=== PATIENT | male | born 1960 | race Caucasian/White ===

== ENCOUNTER 2018-04-26 14:38 | Inpatient (IN) | payer MEDICARE, MEDICAID ==
[2018-04-26] MEDS ORDERED: Albuterol/Ipratropium Neb 3 ML AERS HHN ONE ×3 (15:16→19:45)
[2018-04-26] MEDS ORDERED: Sodium Chloride 0.9% 1,000 ML IV ONE (15:16)
[2018-04-26] MEDS ORDERED: Levofloxacin 500mg/100mL 500 MG/100 ML BAG IV ONE ×2 (15:16→16:05)
--- NOTE | 2018-04-26 15:21 | ED Physician Chart ---
ED Chief Complaint/HPI - Patient Information Date Seen:: 04/26/18 Time Seen:: 15:00 Chief Complaint:: Fever History of Present Illness:: onset x 3 days of fever, cough, congestion, pleuritic chest pain, and dyspnea; pt denies trauma, H/As, S/T, neck pain, Abd. Pain, A/N/V/D/C, chills, or urinary s/s Allergies:: Allergies Allergy/AdvReac Type Severity Reaction Status Date / Time Sulfa (Sulfonamide Allergy Verified 04/26/18 15:05 Antibiotics) Vitals:: Vital Signs - 8 hr 04/26/18 15:05 Temp 99.0 F HR 103 RR 21 BP 152/81 O2 Sat % 95 Historian:: Patient Review:: Nurse's Note Reviewed, Old Chart Reviewed ED Review of Systems - Review of Systems General/Constitutional: Fever, No chills, No weight loss, No weakness, No diaphoresis, No edema, No loss of appetite Skin: No skin lesions, No rash, No bruising Head: No headache, No light-headedness Eyes: No loss of vision, No pain, No diplopia ENT: No earache, Nasal drainage, No sore throat, No tinnitus Neck: No neck pain, No swelling, No thyromegaly, No stiffness, No mass noted Cardio Vascular: Chest pain, No palpitations, No PND, No orthopnea, No edema Pulmonary: SOB, Cough, No sputum, No wheezing GI: No nausea, No vomiting, No diarrhea, No pain, No melena, No hematochezia, No constipation, No hematemesis G/U: No dysuria, No frequency, No hematuria, No nacturia Musculoskeletal: No bone or joint pain, No back pain, No muscle pain Endocrine: No polyuria, No polydipsia Psychiatric: No prior psych history, No depression, No anxiety, No suicidal ideation, No homicidal ideation, No auditory hallucination, No visual hallucination Hematopoietic: No bruising, No lymphadenopathy Allergic/Immuno: No urticaria, No angioedema Neurological: No syncope, No focal symptoms, No weakness, No paresthesia, No headache, No seizure, No dizziness, No confusion, No vertigo ED Past Medical History - Past Medical History Obtainable: Yes Past Medical History: HTN, DM, Asthma/COPD, Dyslipidemia Family History: Diabetes Melitus, HTN Social History: Smoker, No Alcohol, No Drug Use, Single Surgical History: None Psychiatricy History: Depression Medication: Reviewed Family Medical History - Family Member Mother History Unknown: Yes ED Physical Exam - Physical Examination General/Constitutional: Awake, Well-developed, well-nourished, Alert, No distress, GCS 15, Non-toxic appearing, Ambulatory Head: Atraumatic Eyes: Lids, conjuctiva normal, PERRL, EOMI Skin: Nl inspection, No rash, No skin lesions, No ecchymosis, Well hydrated, No lymphadenopathy ENMT: External ears, nose nl, TM canals nl, Nasal exam nl, Lips, teeth, gums nl , Oropharynx nl, Tonsils nl Neck: Nontender, Full ROM w/o pain, No JVD, No nuchal rigidity, No bruit, No mass, No stridor Other Neck comments:: supple; no meningeal signs Respiratory: Nl effort/Exclusion Other Respiratory comments:: Lungs: + Rales, Rhonchi, and Wheezes Cardio Vascular: RRR, No murmur, gallop, rubs, NL S1 S2, Carotid/Femoral/Distal pulses equal bilaterally GI: No tenderness/rebounding/guarding, No organomegaly, No hernia, Normal BS's, Nondistended, No mass/bruits, No McBurney tenderness, Rectum exam nl : No CVA tenderness Extremities: No tenderness or effusion, Full ROM, normal strength in all extremities, No edema, Normal digits & nails Neuro/Psych: Alert/oriented, DTR's symmetric, Normal sensory exam, Normal motor strength, Judgement/insight normal, Mood normal, Normal gait, No focal deficits Misc: Normal back, No paraspinal tenderness ED Labs/Radiology/EKG Results - Lab Results Comments:: Reviewed - Radiology Results Comments:: CXR: CM; + RML Infiltrate - EKG Interpretations EKG Time:: 15:56 Rate & Rhythm: 94; NSR Comments:: non-specific st-t changes ED Septic Shock - . Is Septic Shock (SBP<90, OR Lactate>4 mmol\L) present?: No - <6hrs of presentation: Vital Signs: Vital Signs - 8 hr 04/26/18 15:05 Temp 99.0 F HR 103 RR 21 BP 152/81 O2 Sat % 95 ED Reassessment (Disposition) - Reassessment Reassessment Condition:: Improved - Diagnosis Diagnosis:: Fever; Cough; Dyspnea; Chest Pain; PNA; Sepsis; Hyponatremia; Dehydration; Hypokalemia; Rhabdomyalisis; Elevated D-Dimer; Elevated LFTs; Hypoalbuminemia; Tachycardia; Hypertension; DM - Aftercare/Follow up Instructions Aftercare/Follow-Up Instructions:: Counseled pt regarding lab results/diagnosis & need follow up, Counseled pt & family regarding lab results/diagnosis & need follow up - Patient Disposition Discharge/Transfer:: Acute Care w/in this hosp Accepting Physician:: Dr. Abraham Time Called:: 1700 Time Responded:: 17:00 Admitted to:: ICU Spoke to:: Dr. Echols Admitting Medical Physician:: Dr. Echols Condition at Disposition:: Stable, Improved
[2018-04-26 15:43] LABS: % BASOPHILS 0.9 % (0.0-2.0); % EOSINOPHILS 0.2 % (0.0-5.0); % LYMPHOCYTES 38.3 % (20.0-50.0); % MONOCYTES 14.6 % (2.0-10.0); BASOPHILE ABSOLUTE 0.1 Th/cumm (0-0.2); HEMATOCRIT 43.3 % (41.0-60); HEMOGLOBIN 14.3 gm/dL (12-16); LYMPHOCYTE ABSOLUTE 2.5 Th/cmm (1.5-3.0); MEAN CELL VOLUME 85.6 fl (80-99); MEAN CORPUSCULAR HEMOGLOBIN 28.3 pg (26.0-30.0); MONOCYTE ABSOLUTE 0.9 Th/cmm (0.3-1.0); NEUTROPHILE ABSOLUTE 2.9 Th/cmm (1.8-8.0); PLATELET COUNT 147 Th/cmm (150-400); RED BLOOD COUNT 5.06 Mil/cmm (4.30-5.70); RED CELL DISTRIBUTION WIDTH 12.3 % (11.5-20.0); WHITE BLOOD COUNT 6.4 Th/cmm (4.8-10.8)
[2018-04-26 15:56] LABS: ALB/GLOB RATIO 1.4 (1.0-1.8); ALBUMIN 3.8 gm/dL (4.2-5.5); ALKALINE PHOSPHATASE 49 U/L (34-104); AMYLASE SERUM 18 U/L (29-103); ANION GAP 11.7 (7.0-16.0); BILIRUBIN,TOTAL 0.5 mg/dL (0.3-1.0); BUN - UREA NITROGEN 19 mg/dL (7-25); CALCIUM SERUM 8.7 mg/dL (8.6-10.3); CARBON DIOXIDE 25.3 mEq/L (21.0-31.0); CHLORIDE 99 mEq/L (98-107); CHOLESTEROL 91 mg/dL (<200); GFR AFRICAN-AMERICAN > 60.0 ml/min (>90); GFR NON AFRICAN-AMERICAN > 60.0 ml/min; GLUCOSE 133 mg/dL (70-105); HDL -HIGH DENSITY LIPOPROTEIN 27 mg/dL (23-92); LIPASE 14 U/L (11-82); SGOT 201 U/L (13-39); SGPT/ALT 80 U/L (7-52); SODIUM SERUM 133 mEq/L (136-145); TOTAL PROTEIN,SERUM 6.5 gm/dL (6.0-8.3); TRIGLYCERIDES 122 mg/dL (<150)
[2018-04-26 16:04] LABS: DDIMER QUANT 825 ng/mL (100-400)
[2018-04-26 16:08] LABS: INR 1.03 (0.5-1.4); PROTHROMBIN TIME (TEST) 10.7 SECONDS (9.5-11.5)
[2018-04-26 16:18] LABS: CREATININE KINASE 8728 U/L (30-223)
[2018-04-26] MEDS ORDERED: Potassium Chloride 20 mEq ER Tab PO ONE ×2 (16:42→16:49)
[2018-04-26] MEDS ORDERED: Aspirin 81mg Chewable Tab PO STA (16:44)
[2018-04-26] MEDS ORDERED: Aspirin 81mg Chewable Tab ONE (16:49)
[2018-04-26] MEDS ORDERED: IOHEXOL 350mgI/mL 100mL Bottle IVP ONE (17:00)
[2018-04-26 17:21] LABS: URINE SOURCE MIDSTREAM
[2018-04-26 17:27] LABS: URINE BILIRUBIN NEGATIVE (NEGATIVE); URINE BLOOD LARGE (NEGATIVE); URINE GLUCOSE (UA) NEGATIVE (NEGATIVE); URINE KETONE NEGATIVE (NEGATIVE); URINE LEUKOCYTE ESTERASE NEGATIVE (NEGATIVE); URINE MICROSCOPIC INDICATED? YES; URINE NITRATE NEGATIVE (NEGATIVE); URINE PH 6.5 (4.6 - 8.0); URINE PROTEIN 30 mg/dL (NEGATIVE); URINE UROBILINOGEN 0.2 E.U./dL (0.2 - 1.0)
[2018-04-26 17:29] LABS: URINE CLARITY CLEAR (CLEAR); URINE COLOR YELLOW
[2018-04-26 17:34] LABS: URINE BACTERIA FEW /hpf (NONE SEEN); URINE COARSE GRANULAR CAST 0-2 /lpf (NONE SEEN); URINE EPITHELIAL CELLS FEW /lpf (FEW); URINE WBC 0-2 /hpf (0-5)
[2018-04-26] MEDS ORDERED: LIDOCAINE 2 GM TP PRN (22:09)
[2018-04-26] MEDS ORDERED: Hydrocodone/APAP 5mg/325mg Tab PO PRN (22:09)
[2018-04-26] MEDS ORDERED: Dextrose 50% 50 mL Abboject IVP PRN (22:41)
[2018-04-26] MEDS ORDERED: GLUCAGON HCl 1 MG KIT IM PRN (22:41)
[2018-04-27] MEDS ORDERED: cefTRIAXone 1 GM in Sodium Chloride 0.9% 50 ML IV SCH
[2018-04-27] MEDS: Sodium Chloride 0.9% 1,000 ML IV SCH ×2 (00:03→13:35)
[2018-04-27] MEDS: INSULIN LISPRO SLIDING SCALE 100 UNITS/ML UNIT SUBQ SCH ×4 (00:11→17:44)
[2018-04-27] MEDS: Guaifenesin DM 10 ML UDC PO PRN ×3 (01:40→23:08)
[2018-04-27] MEDS ORDERED: Azithromycin 500 MG in Sodium Chloride 0.9% 250 ML IV ONE (02:00)
[2018-04-27] MEDS ORDERED: Pneumococcal Vaccine 0.5 mL Vial IM ONE (05:01)
[2018-04-27] MEDS ORDERED: Influenza Vaccine (5 yr & older) 0.5 ml Syr IM ONE (05:01)
[2018-04-27 07:08] LABS: HEMATOCRIT 42.1 % (41.0-60); HEMOGLOBIN 13.8 gm/dL (12-16); MEAN CELL VOLUME 86.2 fl (80-99); MEAN CORPUSCULAR HEMOGLOBIN 28.3 pg (26.0-30.0); MEAN CORPUSCULAR HGB CONC 32.8 pg (28.0-36.0); MEAN PLATELET VOLUME 8.3 fl; PLATELET COUNT 143 Th/cmm (150-400); RED BLOOD COUNT 4.89 Mil/cmm (4.30-5.70); RED CELL DISTRIBUTION WIDTH 12.5 % (11.5-20.0); WHITE BLOOD COUNT 5.2 Th/cmm (4.8-10.8)
[2018-04-27 07:12] VITALS: BP 123/76
[2018-04-27 07:13] LABS: ALB/GLOB RATIO 1.3 (1.0-1.8); ALBUMIN 3.4 gm/dL (4.2-5.5); ALKALINE PHOSPHATASE 43 U/L (34-104); ANION GAP 9.7 (7.0-16.0); BILIRUBIN,TOTAL 0.4 mg/dL (0.3-1.0); BUN - UREA NITROGEN 13 mg/dL (7-25); CALCIUM SERUM 8.4 mg/dL (8.6-10.3); CHLORIDE 105 mEq/L (98-107); CREATININE - SERUM 0.8 mg/dL (0.7-1.3); GFR AFRICAN-AMERICAN > 60.0 ml/min (>90); GFR NON AFRICAN-AMERICAN > 60.0 ml/min; GLUCOSE 126 mg/dL (70-105); POTASSIUM SERUM 3.7 mEq/L (3.5-5.1); SGOT 181 U/L (13-39); SGPT/ALT 79 U/L (7-52); SODIUM SERUM 141 mEq/L (136-145)
[2018-04-27 07:35] LABS: CREATININE KINASE 6408 U/L (30-223)
--- NOTE | 2018-04-27 08:03 | Diagnostic Imaging Report ---
Chest x-ray single view History: Chest pain Comparison: None The heart size is normal. No focal pulmonary parenchymal processes. No hilar or mediastinal abnormalities. Impression: No acute abnormalities
[2018-04-27] MEDS: Oxybutynin Chloride 5 mg ER Tab PO SCH (08:25)
[2018-04-27] MEDS ORDERED: Non-Formulary Item 1 EA (Nystatin [Nystatin] 1 EACH) MC SCH (09:00)
[2018-04-27] MEDS ORDERED: Non-Formulary Item 1 EA (Fluticasone/Vilanterol [Breo Ellipta 200-25 Mcg Inh] 1 EACH) IH SCH (09:00)
--- NOTE | 2018-04-27 09:05 | Diagnostic Imaging Report ---
CT pulmonary angiogram with intravenous contrast History: Pulmonary embolism Total DLP equals 334 CTDI equals 1.7 Following administration of intravenous contrast, axial sections were obtained from a level above the clavicles down to a level below the diaphragm. The exam demonstrates normal opacification of the main right and left pulmonary arteries. No intraluminal lesions are seen. Specifically, no evidence of pulmonary embolism. There is preservation of normal fat planes throughout the mediastinum. No lymphadenopathy is seen. No abnormal focal pulmonary parenchymal masses or nodules are seen. No pleural effusions. Impression: Negative examination.
--- NOTE | 2018-04-27 09:34 | Infectious Disease Prog Note ---
Infectious Disease Subjective - Review of Systems Service Date: 04/27/18 Subjective: There is no new change, no fever. Infectious Disease Objective - Results Result Diagrams: 04/27/18 05:35 04/27/18 05:35 Recent Labs: Laboratory Last Values WBC 5.2 Th/cmm (4.8-10.8) 04/27/18 05:35 RBC 4.89 Mil/cmm (4.30-5.70) 04/27/18 05:35 Hgb 13.8 gm/dL (12-16) 04/27/18 05:35 Hct 42.1 % (41.0-60) 04/27/18 05:35 MCV 86.2 fl (80-99) 04/27/18 05:35 MCH 28.3 pg (26.0-30.0) 04/27/18 05:35 MCHC Differential 32.8 pg (28.0-36.0) 04/27/18 05:35 RDW 12.5 % (11.5-20.0) 04/27/18 05:35 Plt Count 143 Th/cmm (150-400) L 04/27/18 05:35 MPV 8.3 fl 04/27/18 05:35 Add Manual Diff YES 04/27/18 05:35 Neutrophils % 46.0 % (40.0-80.0) 04/26/18 15:30 Lymphocytes % 38.3 % (20.0-50.0) 04/26/18 15:30 Monocytes % 14.6 % (2.0-10.0) H 04/26/18 15:30 Eosinophils % 0.2 % (0.0-5.0) 04/26/18 15:30 Basophils % 0.9 % (0.0-2.0) 04/26/18 15:30 PT 10.7 SECONDS (9.5-11.5) 04/26/18 15:30 INR 1.03 (0.5-1.4) 04/26/18 15:30 PTT (Actin FS) 34.6 SECONDS (26.0-38.0) 04/26/18 15:30 D-Dimer 825 ng/mL (100-400) H 04/26/18 15:30 Sodium 133 mEq/L (136-145) L 04/26/18 15:30 Potassium 3.0 mEq/L (3.5-5.1) L 04/26/18 15:30 Chloride 99 mEq/L (98-107) 04/26/18 15:30 Carbon Dioxide 25.3 mEq/L (21.0-31.0) 04/26/18 15:30 Anion Gap 11.7 (7.0-16.0) 04/26/18 15:30 BUN 19 mg/dL (7-25) 04/26/18 15:30 Creatinine 1.0 mg/dL (0.7-1.3) 04/26/18 15:30 Est GFR ( Amer) > 60.0 ml/min (>90) 04/26/18 15:30 Est GFR (Non-Af Amer) > 60.0 ml/min 04/26/18 15:30 BUN/Creatinine Ratio 19.0 04/26/18 15:30 Glucose 133 mg/dL (70-105) H 04/26/18 15:30 Whole Bld Lactic Acid 1.17 mmol/L (0.60-1.99) 04/26/18 15:30 Calcium 8.7 mg/dL (8.6-10.3) 04/26/18 15:30 Total Bilirubin 0.5 mg/dL (0.3-1.0) 04/26/18 15:30 AST 201 U/L (13-39) H 04/26/18 15:30 ALT 80 U/L (7-52) H 04/26/18 15:30 Alkaline Phosphatase 49 U/L (34-104) 04/26/18 15:30 Creatine Kinase 6408 U/L (30-223) H 04/27/18 05:35 CK-MB (CK-2) 37.3 ng/mL (0.6-6.3) H 04/27/18 05:35 Troponin I 0.01 ng/mL (0.01-0.05) 04/26/18 15:30 B-Natriuretic Peptide 6.0 pg/mL (5.0-100.0) 04/26/18 15:30 Total Protein 6.5 gm/dL (6.0-8.3) 04/26/18 15:30 Albumin 3.8 gm/dL (4.2-5.5) L 04/26/18 15:30 Globulin 2.7 gm/dL 04/26/18 15:30 Albumin/Globulin Ratio 1.4 (1.0-1.8) 04/26/18 15:30 Triglycerides 122 mg/dL (<150) 04/26/18 15:30 Cholesterol 91 mg/dL (<200) 04/26/18 15:30 LDL Cholesterol Direct 46 mg/dL (75-193) L 04/26/18 15:30 HDL Cholesterol 27 mg/dL (23-92) 04/26/18 15:30 Amylase 18 U/L (29-103) L 04/26/18 15:30 Lipase 14 U/L (11-82) 04/26/18 15:30 Urine Source MIDSTREAM 04/26/18 16:46 Urine Color YELLOW 04/26/18 16:46 Urine Clarity CLEAR (CLEAR) 04/26/18 16:46 Urine pH 6.5 (4.6 - 8.0) 04/26/18 16:46 Ur Specific [place] 1.020 (1.005-1.030) 04/26/18 16:46 Urine Protein 30 mg/dL (NEGATIVE) H 04/26/18 16:46 Urine Glucose (UA) NEGATIVE mg/dL (NEGATIVE) 04/26/18 16:46 Urine Ketones NEGATIVE mg/dL (NEGATIVE) 04/26/18 16:46 Urine Blood LARGE (NEGATIVE) H 04/26/18 16:46 Urine Nitrate NEGATIVE (NEGATIVE) 04/26/18 16:46 Urine Bilirubin NEGATIVE (NEGATIVE) 04/26/18 16:46 Urine Urobilinogen 0.2 E.U./dL (0.2 - 1.0) 04/26/18 16:46 Ur Leukocyte Esterase NEGATIVE (NEGATIVE) 04/26/18 16:46 Urine RBC 5-10 /hpf (0-5) H 04/26/18 16:46 Urine WBC 0-2 /hpf (0-5) 04/26/18 16:46 Ur Epithelial Cells FEW /lpf (FEW) 04/26/18 16:46 Urine Bacteria FEW /hpf (NONE SEEN) 04/26/18 16:46 Coarse Granular Casts 0-2 /lpf (NONE SEEN) H 04/26/18 16:46 - Physical Exam Vitals and I&O: Vital Signs Temp 98.4 F 04/27/18 06:00 Pulse 89 04/27/18 06:00 Resp 19 04/27/18 06:00 BP 113/69 04/27/18 08:25 Pulse Ox 96 04/27/18 06:00 Intake & Output 04/26/18 04/27/18 04/27/18 18:59 06:59 18:59 Intake Total 100 150 Balance 100 150 Weight (lbs) 133.81 kg 133.81 kg Intake: Intake, IV Amount 100 0 [id number] 1 gm In 0 Sodium Chloride 0.9% 50 ml @ 100 mls/hr IV Q24HR [facility] Rx#:[id number] Oral 150 Other: # Voids 3 Weight Source Patient stated Bedscale Active Medications: Current Medications Acetaminophen/Hydrocodone Bitart ([place] 5mg/325mg) 1 tab PO BID PRN PRN Reason: PAIN Stop: 06/25/18 22:08 Aspirin (Ecotrin) 81 mg PO DAILY [facility] Stop: 06/26/18 08:59 Last Admin: 04/27/18 08:25 Dose: 81 mg Dextrose (D50w) 50 ml IVP PRN PRN PRN Reason: Blood Glucose less than 70 Stop: 06/25/18 22:40 Dextrose (Glutose 40%) 18.75 gm PO PRN PRN PRN Reason: Blood Glucose less than 70 Stop: 06/25/18 22:40 Ergocalciferol (Vitamin D2) 50,000 iu PO QWEEK [facility] Stop: 06/25/18 22:14 Furosemide (Lasix) 20 mg PO DAILY [facility] Stop: 06/26/18 08:59 Last Admin: 04/27/18 08:25 Dose: 20 mg Gabapentin (Neurontin) 600 mg PO TID [facility] Stop: 06/26/18 08:59 Last Admin: 04/27/18 08:24 Dose: 600 mg Glucagon (Glucagen) 1 mg IM PRN PRN PRN Reason: Blood Glucose less than 70 Stop: 06/25/18 22:40 Guaifenesin/Dextromethorphan (Robitussin Dm) 10 ml PO Q6HR PRN PRN Reason: Cough Stop: 06/26/18 01:04 Last Admin: 04/27/18 01:40 Dose: 10 ml Sodium Chloride (Nacl 0.9%) 1,000 mls @ 125 mls/hr IV .Q8H [facility] Stop: 06/25/18 22:59 Last Admin: 04/27/18 00:03 Dose: 125 mls/hr Ceftriaxone Sodium 1 gm/ (Sodium Chloride) 50 mls @ 100 mls/hr IV Q24HR [facility] Stop: 06/26/18 00:00 Last Infusion: 04/27/18 01:16 Dose: Infused Insulin Human Lispro (Humalog Insulin Sliding Scale) 0 units SUBQ Q6HR [facility]; Protocol Stop: 06/26/18 00:00 Last Admin: 04/27/18 07:06 Dose: Not Given Loperamide HCl (Imodium) 2 mg PO Q4H PRN PRN Reason: Diarrhea Stop: 06/25/18 22:08 Lorazepam (Ativan) 1 mg PO DAILY [facility]; Protocol Stop: 06/26/18 08:59 Miscellaneous (Fluticasone/Vilanterol [Breo Ellipta 200-25 Mcg Inh]) 1 each IH DAILY [facility] Stop: 06/26/18 08:59 Last Admin: 04/27/18 08:29 Dose: Not Given Miscellaneous (Lidocaine [Lidocaine]) 2 gm TP BID PRN PRN Reason: AFFECTED AREA Oxybutynin Chloride (Ditropan Xl) 10 mg PO DAILY [facility] Stop: 06/26/18 08:59 Last Admin: 04/27/18 08:25 Dose: 10 mg General: no acute distress, well developed, well nourished HEENT: atraumatic, normocephalic, PERRLA, EOMI Neck: supple, no thyromegaly Cardiovascular: S1S2, regular Lungs: clear to auscultation bilaterally, clear to percussion Abdomen: soft, no tender, no distended, no rebound Extremities: no cyanosis, no clubbing, no edema Neurological: awake, alert, oriented Skin: intact Infectious Disease Assmt/Plan - Problem List Patient Problems: All Active Problems COUGH WITH PURULENT SPUTUM (Acute) - Assessment Assessment: 1. bronchitis. 2. HIV. 3. Rhabdomyolysis. 4. HTN. 5. DM2 - Plan Plan: change antibiotics to levaquin. Influenza screen is still pending. WIll start Tamiflu. Continue IVF for rhabdo. If influenza screen comes negative, may dc tamiflu. MARGO SZYMANSKI.
--- NOTE | 2018-04-27 10:45 | History and Physical ---
History of Present Illness - HPI Chief Complaint: Cough and fever HPI: Patient refer that x 3 days he has having cough and fever. At ER evaluation was found Right lobe infiltrate, Elevated CK and elevated D-Dimers Vital Signs: Last Vital Signs Temp 98.4 F 04/27/18 06:00 Pulse 89 04/27/18 06:00 Resp 19 04/27/18 06:00 BP 113/69 04/27/18 08:25 Pulse Ox 96 04/27/18 06:00 Past Medical History Cardiovascular: Report: HTN Pulmonary: Report: Asthma LICENSED EMBALMER: Report: No Pertinent Hx GI: Report: No Pertinent Hx Psych: Report: Anxiety, Depression Musculoskeletal: Report: No Pertinent Hx Rheumatologic: Report: No pertinent Hx Infectious Disease: Report: HIV Renal/: Report: No Pertinent Hx Endocrine: Report: Diabetes Dermatology: Report: No Pertinent Hx - Past Surgical History Past Surgical History: No pertinent Hx Family Medical History - Family Member Mother History Unknown: Yes Hx Family Hypertension: Yes Hx Family Diabetes: Yes Social History Smoke: 1 pack per day Alcohol: None Drugs: Other (Quit few years ago) Lives: With Family Domestic Violence: Negative - Medications Home Medications: Home Medication Medication Instructions Recorded Type Albuterol Sulfate [Proair 90 mcg IH Q4H PRN 04/26/18 History Respiclick] Amitriptyline HCl 75 mg PO HS 04/26/18 History Aripiprazole [Abilify] 5 mg PO DAILY 04/26/18 History Aspirin EC [Ecotrin] 81 mg PO DAILY 04/26/18 History Atorvastatin Calcium [Lipitor] 10 mg PO DAILY 04/26/18 History Bictegrav/Emtricit/Tenofov Ala 1 each PO DAILY 04/26/18 History [Biktarvy 50-200-25 mg Tablet] Crofelemer [Fulyzaq] 125 mg PO BID 04/26/18 History Diclofenac Sodium [Voltaren] 1 % TP QID 04/26/18 History Duloxetine HCl [Cymbalta] 20 mg PO BID 04/26/18 History Ergocalciferol [Vitamin D2] 50,000 iu PO QWEEK 04/26/18 History Fluticasone/Vilanterol [Breo 1 each IH DAILY 04/26/18 History Ellipta 200-25 Mcg INH] Furosemide 20 mg PO DAILY 04/26/18 History Gabapentin 600 mg PO TID 04/26/18 History Hydrocodone/Acetaminophen 1 each PO BID PRN 04/26/18 History [Hydrocodone-Acetamin 5-325 mg] Lamotrigine [Lamictal] 250 mg PO HS 04/26/18 History Lidocaine 2 gm TP BID PRN 04/26/18 History Loperamide [Imodium] 2 mg PO Q4H PRN 04/26/18 History Loratadine 10 mg PO DAILY 04/26/18 History Lorazepam 1 mg PO DAILY 04/26/18 History Losartan Potassium 50 mg PO DAILY 04/26/18 History Nystatin 1 each MC BID 04/26/18 History Oxybutynin Chloride [Ditropan Xl] 10 mg PO DAILY 04/26/18 History Topiramate 25 mg PO BID 04/26/18 History metFORMIN [Glucophage] 500 mg PO BID 04/26/18 History - Allergies Allergies/Adverse Reactions: Allergies Allergy/AdvReac Type Severity Reaction Status Date / Time Sulfa (Sulfonamide Allergy Verified 04/26/18 15:05 Antibiotics) Review of Systems - Review of Systems Constitutional: Report: Fever, Weakness Eyes: Report: No Significant Respiratory: Report: Other (Patient has no tooths) Cardiovascular: Report: No Significant Gastrointestinal: Report: No Significant Genitourinary: Report: No Significant Musculoskeletal: Report: No Significant Skin: Report: No Significant Neurological: Report: Weakness Physical Exam - Physical Exam HEENT: Report: Ears Nose Throat within normal limits Neck: Report: Within normal limits Cardiovascular Systems: Report: Regular, Rate and Rhythm Respiratory: Report: Wheezing, Crackles, Rhonchi Abdomen: Report: Non-tender to palpation Back: Report: Inspection of back is within normal limits. Extremities: Report: Non-tender to palpation. Skin: Report: Color of skin is within normal limits Neuro/Psych: Report: Mood affect is within normal limits, CN II-XII intact - Lab Results All Lab Results last 24 hours: Laboratory Results - last 24 hr 04/26/18 04/26/18 04/26/18 15:30 15:30 15:30 WBC 6.4 RBC 5.06 Hgb 14.3 Hct 43.3 MCV 85.6 MCH 28.3 MCHC Differential 33.0 RDW 12.3 Plt Count 147 L MPV 8.0 Add Manual Diff Neutrophils % 46.0 Lymphocytes % 38.3 Monocytes % 14.6 H Eosinophils % 0.2 Basophils % 0.9 PT INR PTT (Actin FS) D-Dimer 825 H Sodium 133 L Potassium 3.0 L Chloride 99 Carbon Dioxide 25.3 Anion Gap 11.7 BUN 19 Creatinine 1.0 Est GFR ( Amer) > 60.0 Est GFR (Non-Af Amer) > 60.0 BUN/Creatinine Ratio 19.0 Glucose 133 H Whole Bld Lactic Acid Calcium 8.7 Total Bilirubin 0.5 AST 201 H ALT 80 H Alkaline Phosphatase 49 Creatine Kinase 8728 H CK-MB (CK-2) 93.5 H Troponin I B-Natriuretic Peptide 6.0 Total Protein 6.5 Albumin 3.8 L Globulin 2.7 Albumin/Globulin Ratio 1.4 Triglycerides 122 Cholesterol 91 LDL Cholesterol Direct 46 L HDL Cholesterol 27 Amylase 18 L Lipase 14 Urine Source Urine Color Urine Clarity Urine pH Ur Specific [place] Urine Protein Urine Glucose (UA) Urine Ketones Urine Blood Urine Nitrate Urine Bilirubin Urine Urobilinogen Ur Leukocyte Esterase Urine RBC Urine WBC Ur Epithelial Cells Urine Bacteria Coarse Granular Casts 04/26/18 04/26/18 04/26/18 15:30 15:30 15:30 WBC RBC Hgb Hct MCV MCH MCHC Differential RDW Plt Count MPV Add Manual Diff Neutrophils % Lymphocytes % Monocytes % Eosinophils % Basophils % PT 10.7 INR 1.03 PTT (Actin FS) 34.6 D-Dimer Sodium Potassium Chloride Carbon Dioxide Anion Gap BUN Creatinine Est GFR ( Amer) Est GFR (Non-Af Amer) BUN/Creatinine Ratio Glucose Whole Bld Lactic Acid 1.17 Calcium Total Bilirubin AST ALT Alkaline Phosphatase Creatine Kinase CK-MB (CK-2) Troponin I 0.01 B-Natriuretic Peptide Total Protein Albumin Globulin Albumin/Globulin Ratio Triglycerides Cholesterol LDL Cholesterol Direct HDL Cholesterol Amylase Lipase Urine Source Urine Color Urine Clarity Urine pH Ur Specific [place] Urine Protein Urine Glucose (UA) Urine Ketones Urine Blood Urine Nitrate Urine Bilirubin Urine Urobilinogen Ur Leukocyte Esterase Urine RBC Urine WBC Ur Epithelial Cells Urine Bacteria Coarse Granular Casts 04/26/18 04/27/18 04/27/18 16:46 05:35 05:35 WBC 5.2 RBC 4.89 Hgb 13.8 Hct 42.1 MCV 86.2 MCH 28.3 MCHC Differential 32.8 RDW 12.5 Plt Count 143 L MPV 8.3 Add Manual Diff YES Neutrophils % Lymphocytes % Monocytes % Eosinophils % Basophils % PT INR PTT (Actin FS) D-Dimer Sodium 141 Potassium 3.7 Chloride 105 Carbon Dioxide 30.0 Anion Gap 9.7 BUN 13 Creatinine 0.8 Est GFR ( Amer) > 60.0 Est GFR (Non-Af Amer) > 60.0 BUN/Creatinine Ratio 16.3 Glucose 126 H Whole Bld Lactic Acid Calcium 8.4 L Total Bilirubin 0.4 AST 181 H ALT 79 H Alkaline Phosphatase 43 Creatine Kinase 6408 H CK-MB (CK-2) 37.3 H Troponin I B-Natriuretic Peptide Total Protein 6.0 Albumin 3.4 L Globulin 2.6 Albumin/Globulin Ratio 1.3 Triglycerides Cholesterol LDL Cholesterol Direct HDL Cholesterol Amylase Lipase Urine Source [place] Urine Color YELLOW Urine Clarity CLEAR Urine pH 6.5 Ur Specific [place] 1.020 Urine Protein 30 H Urine Glucose (UA) NEGATIVE Urine Ketones NEGATIVE Urine Blood LARGE H Urine Nitrate NEGATIVE Urine Bilirubin NEGATIVE Urine Urobilinogen 0.2 Ur Leukocyte Esterase NEGATIVE Urine RBC 5-10 H Urine WBC 0-2 Ur Epithelial Cells FEW Urine Bacteria FEW Coarse Granular Casts 0-2 H - Assessment Assessment: Current Active Problems Problem Status Onset COUGH WITH PURULENT SPUTUM Acute Patient is awake, alert, calm in no acute distress. Dx: PNA, Rhabdomyolisis, Elevated D-dimers, Dehydration, HTN, DM, HIV. - Plan Plan: Patient is in IV NS, IV AB, Breathing treatment, Pain control, Insulin sliding scale, Diabetic diet, patient already seen by ID. Will continue to monitor.
--- NOTE | 2018-04-27 10:46 | Consultation ---
DATE OF CONSULTATION: 04/26/2018 INFECTIOUS DISEASE CONSULTATION REFERRING PHYSICIAN: Syed Echols M.D. REASON FOR CONSULTATION: Pneumonia, sepsis. HISTORY OF PRESENT ILLNESS: The patient is 57-year-old male with a past medical history of HIV, hypertension, diabetes mellitus type 2, asthma, COPD, dyslipidemia, developed cough, congestion with a fever for last 3 days. It was associated with pleuritic chest pain. The patient complains of dyspnea also. On initial evaluation, the patient's temperature was 99 degrees Fahrenheit and WBC count was 6400. CPK was 8728. Chest x-ray showed right middle lobe infiltrate. ID consult was called for further antibiotic management. PAST MEDICAL HISTORY: As mentioned above, HIV, diabetes mellitus type 2, hypertension, asthma, COPD and dyslipidemia. FAMILY HISTORY: Diabetes mellitus type 2 and hypertension. SOCIAL HISTORY: The patient is single. History of smoking, quit smoking 20 years ago. No alcohol, no drug use. PAST SURGICAL HISTORY: None. PSYCHIATRIC HISTORY: Depression. MEDICATIONS: Per medication reconciliation sheet. Antibiotic dent, the patient received Levaquin and patient is receiving Rocephin. REVIEW OF SYSTEMS: GENERAL: The patient has fever and chills and generalized weakness. HEENT: No diplopia, no photophobia, no sore throat. RESPIRATORY: Presented with cough, shortness of breath and pleuritic chest pain. The patient also has wheezing. CARDIOVASCULAR: No chest pain, no palpitation. The patient had chest pain on the decreased inspiration. GASTROINTESTINAL: No nausea, no vomiting, no diarrhea, no constipation. GENITOURINARY: No dysuria. NEUROLOGIC: No headache, no dizziness, no focal weakness. PHYSICAL EXAMINATION: VITAL SIGNS: Shows temperature is 99 degrees Fahrenheit, pulse 100, respirations 16, blood pressure 138/87. GENERAL: The patient is comfortable lying in the bed, not in acute distress. HEENT: Head is normocephalic, atraumatic. Oral cavity moist, pink tongue. EYES: No pallor, no icterus. Pupils PERRLA, EOMI. NECK: Supple, no JVD, no carotid bruit. Trachea in midline. CHEST: Bilateral breath sounds. Crackles present bilaterally. CARDIOVASCULAR: S1, S2 within normal limits. Regular rhythm. No murmur or gallop. ABDOMEN: Soft, nontender, nondistended. Bowel sounds present. EXTREMITIES: No cyanosis, no clubbing, no edema. NEUROLOGIC: Alert, awake, oriented x 3. LABORATORY DATA: WBC count 6400, hemoglobin 14.3, hematocrit 43.3, platelets are 147,000, neutrophils 46%. INR is 1.03. D-dimer 825. Sodium 133, potassium 3, chloride 99, bicarbonate is 25.3, BUN is 19, creatinine 1.0, glucose 133 and AST is 201, ALT is 80, alkaline phosphatase was 49, total bilirubin 0.5. CPK is 8728 and a CPK-MB is 93.5%. Urinalysis, large blood with negative leukoesterase, WBC 0-2 and few epithelial cells. Chest x-ray is as per the ER note showed right middle lobe infiltrate. IMPRESSION: 1. Pneumonia, right middle lobe pneumonia. 2. HIV CD4 count 764, HIV VL undetectable. 3. Fever. 4. Rhabdomyolysis. 5. Hypertension. 6. Diabetes mellitus type 2. RECOMMENDATIONS: We will continue Rocephin and Zithromax. Check blood cultures, sputum cultures. Check influenza screen. RSV screen. Continue Biktarvy. Thank you, Dr. Echols for involving me in taking care of this patient. JOB# [id number] [facility]
[2018-04-27 10:49] LABS: AMPHETAMINE URINE NEGATIVE (NEGATIVE); BARBITURATES URINE NEGATIVE (NEGATIVE); COCAINE METABOLITE QUAL URINE NEGATIVE (NEGATIVE); METHAMPHETAMINES QUAL URINE NEGATIVE (NEGATIVE); PHENCYCLIDINE (PCP) URINE NEGATIVE (NEGATIVE)
[2018-04-27 10:50] LABS: BENZODIAZEPINES QUAL URINE POSITIVE (NEGATIVE); CANNABINOID THC NEGATIVE (NEGATIVE); METHADONE URINE NEGATIVE (NEGATIVE); OPIATES (MORPHINE) QUAL. URINE POSITIVE (NEGATIVE); TRICYCLICS (TCA) QUAL. URINE POSITIVE (NEGATIVE)
[2018-04-27 12:23] LABS: BAND NEUTROPHILE 2 % (0-10); BASOPHIL 0 % (0-3); EOSINOPHIL 0 % (0-5); LYMPHOCYTE 45 % (20-50); MONOCYTE 11 % (2-10); NEUTROPHILS 42 % (40-80)
[2018-04-27 13:27] LABS: INF A SCREEN POS FOR INF A
[2018-04-27 13:28] LABS: INF B SCREEN NEG FOR INF B
[2018-04-27] MEDS: Albuterol/Ipratropium Neb 3 ML AERS HHN SCH ×2 (14:02→19:07)
[2018-04-28] MEDS: Albuterol/Ipratropium Neb 3 ML AERS HHN SCH ×4 (00:08→19:02)
[2018-04-28] MEDS: INSULIN LISPRO SLIDING SCALE 100 UNITS/ML UNIT SUBQ SCH ×4 (00:39→17:20)
[2018-04-28] MEDS: Sodium Chloride 0.9% 1,000 ML IV SCH ×3 (06:08→21:37)
[2018-04-28] MEDS: Guaifenesin DM 10 ML UDC PO PRN ×3 (06:08→21:36)
[2018-04-28 06:46] LABS: HEMATOCRIT 42.3 % (41.0-60); MEAN CELL VOLUME 85.8 fl (80-99); MEAN CORPUSCULAR HEMOGLOBIN 28.4 pg (26.0-30.0); MEAN CORPUSCULAR HGB CONC 33.1 pg (28.0-36.0); MEAN PLATELET VOLUME 8.4 fl; PLATELET COUNT 147 Th/cmm (150-400); RED BLOOD COUNT 4.93 Mil/cmm (4.30-5.70); RED CELL DISTRIBUTION WIDTH 12.9 % (11.5-20.0); WHITE BLOOD COUNT 4.1 Th/cmm (4.8-10.8)
[2018-04-28 07:11] LABS: ALB/GLOB RATIO 1.4 (1.0-1.8); ALBUMIN 3.6 gm/dL (4.2-5.5); ALKALINE PHOSPHATASE 53 U/L (34-104); ANION GAP 11.4 (7.0-16.0); BILIRUBIN,TOTAL 0.4 mg/dL (0.3-1.0); CALCIUM SERUM 9.2 mg/dL (8.6-10.3); CARBON DIOXIDE 29.7 mEq/L (21.0-31.0); CHLORIDE 106 mEq/L (98-107); CREATININE - SERUM 0.7 mg/dL (0.7-1.3); CREATININE KINASE 2174 U/L (30-223); GFR AFRICAN-AMERICAN > 60.0 ml/min (>90); GFR NON AFRICAN-AMERICAN > 60.0 ml/min; GLUCOSE 122 mg/dL (70-105); POTASSIUM SERUM 3.1 mEq/L (3.5-5.1); SGOT 132 U/L (13-39); SGPT/ALT 82 U/L (7-52); SODIUM SERUM 144 mEq/L (136-145); TOTAL PROTEIN,SERUM 6.2 gm/dL (6.0-8.3)
[2018-04-28 07:37] LABS: BAND NEUTROPHILE 1 % (0-10); BASOPHIL 0 % (0-3); EOSINOPHIL 2 % (0-5); LYMPHOCYTE 41 % (20-50); MONOCYTE 13 % (2-10); NEUTROPHILS 43 % (40-80); PLATELET ESTIMATE ADEQUATE (NORMAL)
[2018-04-28] MEDS: Oxybutynin Chloride 5 mg ER Tab PO SCH (08:13)
[2018-04-28 09:14] LABS: BUN - UREA NITROGEN 11 mg/dL (7-25)
--- NOTE | 2018-04-28 10:00 | Diagnostic Imaging Report ---
Exam: Ultrasound examination deep venous circulation lower extremities. HISTORY: DVT Findings: Real-time ultrasound exam of the lower extremities performed multiple planes utilizing color Doppler technique. The study demonstrates normal compressibility and augmentation of deep venous system throughout. IMPRESSION: No evidence of deep venous thrombosis lower extremities bilaterally.
--- NOTE | 2018-04-28 18:14 | General Progress Note ---
Subjective - Review of Systems Service Date: 04/28/18 Subjective: I am better Objective - Results Result Diagrams: 04/28/18 05:56 04/28/18 05:56 Recent Labs: Laboratory Last Values WBC 4.1 Th/cmm (4.8-10.8) L 04/28/18 05:56 RBC 4.93 Mil/cmm (4.30-5.70) 04/28/18 05:56 Hgb 14.0 gm/dL (12-16) 04/28/18 05:56 Hct 42.3 % (41.0-60) 04/28/18 05:56 MCV 85.8 fl (80-99) 04/28/18 05:56 MCH 28.4 pg (26.0-30.0) 04/28/18 05:56 MCHC Differential 33.1 pg (28.0-36.0) 04/28/18 05:56 RDW 12.9 % (11.5-20.0) 04/28/18 05:56 Plt Count 147 Th/cmm (150-400) L 04/28/18 05:56 MPV 8.4 fl 04/28/18 05:56 Add Manual Diff YES 04/28/18 05:56 Neutrophils % 46.0 % (40.0-80.0) 04/26/18 15:30 Band Neutrophils % 1 % (0-10) 04/28/18 05:56 Lymphocytes % 38.3 % (20.0-50.0) 04/26/18 15:30 Monocytes % 14.6 % (2.0-10.0) H 04/26/18 15:30 Eosinophils % 0.2 % (0.0-5.0) 04/26/18 15:30 Basophils % 0.9 % (0.0-2.0) 04/26/18 15:30 Neutrophils (Manual) 43 % (40-80) 04/28/18 05:56 Lymphocytes 41 % (20-50) 04/28/18 05:56 Monocytes 13 % (2-10) H 04/28/18 05:56 Eosinophils 2 % (0-5) 04/28/18 05:56 Basophils 0 % (0-3) 04/28/18 05:56 Platelet Estimate ADEQUATE (NORMAL) 04/28/18 05:56 PT 10.7 SECONDS (9.5-11.5) 04/26/18 15:30 INR 1.03 (0.5-1.4) 04/26/18 15:30 PTT (Actin FS) 34.6 SECONDS (26.0-38.0) 04/26/18 15:30 D-Dimer 825 ng/mL (100-400) H 04/26/18 15:30 Sodium 144 mEq/L (136-145) 04/28/18 05:56 Potassium 3.1 mEq/L (3.5-5.1) L 04/28/18 05:56 Chloride 106 mEq/L (98-107) 04/28/18 05:56 Carbon Dioxide 29.7 mEq/L (21.0-31.0) 04/28/18 05:56 Anion Gap 11.4 (7.0-16.0) 04/28/18 05:56 BUN 11 mg/dL (7-25) 04/28/18 05:56 Creatinine 0.7 mg/dL (0.7-1.3) 04/28/18 05:56 Est GFR ( Amer) > 60.0 ml/min (>90) 04/28/18 05:56 Est GFR (Non-Af Amer) > 60.0 ml/min 04/28/18 05:56 BUN/Creatinine Ratio 15.7 04/28/18 05:56 Glucose 122 mg/dL (70-105) H 04/28/18 05:56 POC Glucose 137 MG/DL (70 - 105) H 04/28/18 17:19 Whole Bld Lactic Acid 1.17 mmol/L (0.60-1.99) 04/26/18 15:30 Calcium 9.2 mg/dL (8.6-10.3) 04/28/18 05:56 Total Bilirubin 0.4 mg/dL (0.3-1.0) 04/28/18 05:56 AST 132 U/L (13-39) H 04/28/18 05:56 ALT 82 U/L (7-52) H 04/28/18 05:56 Alkaline Phosphatase 53 U/L (34-104) 04/28/18 05:56 Creatine Kinase 2174 U/L (30-223) H 04/28/18 05:56 CK-MB (CK-2) 10.4 ng/mL (0.6-6.3) H 04/28/18 05:56 Troponin I 0.01 ng/mL (0.01-0.05) 04/26/18 15:30 B-Natriuretic Peptide 6.0 pg/mL (5.0-100.0) 04/26/18 15:30 Total Protein 6.2 gm/dL (6.0-8.3) 04/28/18 05:56 Albumin 3.6 gm/dL (4.2-5.5) L 04/28/18 05:56 Globulin 2.6 gm/dL 04/28/18 05:56 Albumin/Globulin Ratio 1.4 (1.0-1.8) 04/28/18 05:56 Triglycerides 122 mg/dL (<150) 04/26/18 15:30 Cholesterol 91 mg/dL (<200) 04/26/18 15:30 LDL Cholesterol Direct 46 mg/dL (75-193) L 04/26/18 15:30 HDL Cholesterol 27 mg/dL (23-92) 04/26/18 15:30 Amylase 18 U/L (29-103) L 04/26/18 15:30 Lipase 14 U/L (11-82) 04/26/18 15:30 Urine Source MIDSTREAM 04/26/18 16:46 Urine Color YELLOW 04/26/18 16:46 Urine Clarity CLEAR (CLEAR) 04/26/18 16:46 Urine pH 6.5 (4.6 - 8.0) 04/26/18 16:46 Ur Specific [place] 1.020 (1.005-1.030) 04/26/18 16:46 Urine Protein 30 mg/dL (NEGATIVE) H 04/26/18 16:46 Urine Glucose (UA) NEGATIVE mg/dL (NEGATIVE) 04/26/18 16:46 Urine Ketones NEGATIVE mg/dL (NEGATIVE) 04/26/18 16:46 Urine Blood LARGE (NEGATIVE) H 04/26/18 16:46 Urine Nitrate NEGATIVE (NEGATIVE) 04/26/18 16:46 Urine Bilirubin NEGATIVE (NEGATIVE) 04/26/18 16:46 Urine Urobilinogen 0.2 E.U./dL (0.2 - 1.0) 04/26/18 16:46 Ur Leukocyte Esterase NEGATIVE (NEGATIVE) 04/26/18 16:46 Urine RBC 5-10 /hpf (0-5) H 04/26/18 16:46 Urine WBC 0-2 /hpf (0-5) 04/26/18 16:46 Ur Epithelial Cells FEW /lpf (FEW) 04/26/18 16:46 Urine Bacteria FEW /hpf (NONE SEEN) 04/26/18 16:46 Coarse Granular Casts 0-2 /lpf (NONE SEEN) H 04/26/18 16:46 Urine Opiates Screen POSITIVE (NEGATIVE) H 04/27/18 06:00 Urine Methadone Screen NEGATIVE (NEGATIVE) 04/27/18 06:00 Ur Barbiturates Screen NEGATIVE (NEGATIVE) 04/27/18 06:00 Ur Tricyclics Screen POSITIVE (NEGATIVE) H 04/27/18 06:00 Ur Phencyclidine Scrn NEGATIVE (NEGATIVE) 04/27/18 06:00 Amphetamines Screen NEGATIVE (NEGATIVE) 04/27/18 06:00 U Methamphetamines Scrn NEGATIVE (NEGATIVE) 04/27/18 06:00 U Benzodiazepines Scrn POSITIVE (NEGATIVE) H 04/27/18 06:00 U Cocaine Metab Screen NEGATIVE (NEGATIVE) 04/27/18 06:00 U Cannabinoids Screen NEGATIVE (NEGATIVE) 04/27/18 06:00 Influenza A (Rapid) POS FOR INF A H 04/27/18 13:07 Influenza B (Rapid) NEG FOR INF B 04/27/18 13:07 - Physical Exam Vitals and I&O: Vital Signs Temp 97.7 F 04/28/18 16:00 Pulse 80 04/28/18 16:00 Resp 20 04/28/18 16:00 BP 107/71 04/28/18 16:00 Pulse Ox 98 04/28/18 16:00 Intake & Output 04/27/18 04/28/18 04/28/18 18:59 06:59 18:59 Intake Total 1999 1400 954.167 Balance 1999 1400 954.167 Weight (lbs) 133.81 kg 133.81 kg Intake: Intake, IV Amount 1000 1000 954.167 Sodium Chloride 0.9% 1, 1000 1000 954.167 000 ml @ 125 mls/hr IV . Q8H [facility] Rx#:[id number] Oral 1000 400 Other: # Voids 4 2 # Bowel Movements 1 2 Stool Characteristics Soft Weight Source Bedscale Bedscale Active Medications: Current Medications Acetaminophen (Tylenol) 650 mg PO Q6H PRN PRN Reason: Pain (Mild) Stop: 06/27/18 01:51 Last Admin: 04/28/18 16:08 Dose: 650 mg Acetaminophen/Hydrocodone Bitart ([place] 5mg/325mg) 1 tab PO BID PRN PRN Reason: Pain (Moderate) Stop: 06/25/18 22:08 Albuterol/Ipratropium (Duoneb Neb) 3 ml HHN Q6HRT [facility] Stop: 06/26/18 12:59 Last Admin: 04/28/18 12:57 Dose: 3 ml Aspirin (Ecotrin) 81 mg PO DAILY [facility] Stop: 06/26/18 08:59 Last Admin: 04/28/18 08:13 Dose: 81 mg Dextrose (D50w) 50 ml IVP PRN PRN PRN Reason: Blood Glucose less than 70 Stop: 06/25/18 22:40 Dextrose (Glutose 40%) 18.75 gm PO PRN PRN PRN Reason: Blood Glucose less than 70 Stop: 06/25/18 22:40 Ergocalciferol (Vitamin D2) 50,000 iu PO QMON [facility] Stop: 06/25/18 22:14 Last Admin: 04/27/18 16:57 Dose: Not Given Furosemide (Lasix) 20 mg PO DAILY [facility] Stop: 06/26/18 08:59 Last Admin: 04/28/18 08:13 Dose: 20 mg Gabapentin (Neurontin) 600 mg PO TID [facility] Stop: 06/26/18 08:59 Last Admin: 04/28/18 13:43 Dose: 600 mg Glucagon (Glucagen) 1 mg IM PRN PRN PRN Reason: Blood Glucose less than 70 Stop: 06/25/18 22:40 Guaifenesin/Dextromethorphan (Robitussin Dm) 10 ml PO Q6HR PRN PRN Reason: Cough Stop: 06/26/18 01:04 Last Admin: 04/28/18 16:09 Dose: 10 ml Sodium Chloride (Nacl 0.9%) 1,000 mls @ 125 mls/hr IV .Q8H [facility] Stop: 06/25/18 22:59 Last Admin: 04/28/18 13:46 Dose: 125 mls/hr Insulin Human Lispro (Humalog Insulin Sliding Scale) 0 units SUBQ Q6HR [facility]; Protocol Stop: 06/26/18 00:00 Last Admin: 04/28/18 17:20 Dose: Not Given Levofloxacin (Levaquin) 500 mg PO DAILY [facility] Stop: 06/27/18 08:59 Last Admin: 04/28/18 08:13 Dose: 500 mg Loperamide HCl (Imodium) 2 mg PO Q4H PRN PRN Reason: Diarrhea Stop: 06/25/18 22:08 Last Admin: 04/28/18 06:08 Dose: 2 mg Lorazepam (Ativan) 1 mg PO DAILY [facility]; Protocol Stop: 06/26/18 08:59 Last Admin: 04/28/18 08:13 Dose: 1 mg Oseltamivir Phosphate (Tamiflu) 75 mg PO BID [facility] Stop: 06/26/18 16:59 Last Admin: 04/28/18 16:08 Dose: 75 mg Oxybutynin Chloride (Ditropan Xl) 10 mg PO DAILY [facility] Stop: 06/26/18 08:59 Last Admin: 04/28/18 08:13 Dose: 10 mg Zolpidem Tartrate (Ambien) 5 mg PO HS PRN PRN Reason: Insomnia Stop: 06/26/18 22:07 Last Admin: 04/27/18 23:08 Dose: 5 mg General: Alert, Oriented x3 HEENT: PERRLA Neck: Supple Cardiovascular: Regular rate Lungs: Clear to auscultation Abdomen: Bowel sounds, Soft Extremities: Other (No edema) Neurological: Normal gait Skin: Other (Warm and dry) Psych/Mental Status: Mental status NL Assessment/Plan - Problem List Patient Problems: All Active Problems COUGH WITH PURULENT SPUTUM (Acute) - Assessment Assessment: Current Active Problems Problem Status Onset COUGH WITH PURULENT SPUTUM Acute Patient is awake, alert, calm in no acute distress. CK improving, less cough. Dx : PNA, Rhabdomyolisis, Elevated D-dimers, Dehydration, HTN, DM, HIV. - Plan Plan: Patient is in IV NS, IV AB, Breathing treatment, Pain control, Insulin sliding scale, Diabetic diet, patient follow by ID. Will continue to monitor. Nutritional Asmnt/Malnutr-PDOC - Dietary Evaluation Malnutrition Findings (Please click <Entered> for more info): Nutritional Asmnt/Malnutrition Start: 04/27/18 12: 29 Text: Status: Complete Freq: Protocol: Document 04/27/18 12:29 SNEHADINH (Rec: 04/27/18 12:45 CONOR MONIK- [email or web address]) Nutritional Asmnt/Malnutrition Patient General Information Nutritional Screening High Risk Consult Diagnosis Possible PE Pertinent Medical Hx/Surgical Hx HTN, asthma, anxiety, depression, HIV, diabetes Subjective Information Patient not in bed at time of visit. Current Diet Order/ Nutrition Support 60 gm CCHO Patient / S.O Not Indicated Pertinent Medications D50W, Vitamin D2, lasix, glucoagon, HUmalog, imodium Pertinent Labs (04/27) AST 181, ALT 79 ( decreasing), CK 6408 ( decreasing), ALbumin 3.4 ( decreasing) Nutritional Hx/Data Height 1.73 m Height (Calculated Centimeters) 172.7 Current Weight (lbs) 133.81 kg Weight (Calculated Kilograms) 133.8 Weight (Calculated Grams) 747973.7 [place] Body Weight 154 % [place] Body Weight 191 Body Mass Index (BMI) 44.8 Weight Status Morbidly Obese GI Symptoms GI Symptoms None Last BM none noted in EMR Difficult in: None Food Allergies No Cultural/Ethnic/Zoroastrian Belief none indicated Usual diet at home unknown Skin Integrity/Comment: carrie Tinajero Estimated Nutritional Goals BEE in Kcals: Adj wt of IBW Calories/Kcals/Kg Adj wt 86kg 25-30 kcal/kg Kcals Calculated ~6539-2759 kcal/day Protein: Adj wt of IBW Protein g/k-1.2 gm/kg using Adj wt Protein Calculated 85-105 gm/day Fluid: ml ~7412-8728 ml/day Nutritional Problem 1. Problem Problem Malnutrition related to Etiology morbid obesity aeb Signs/Symptoms: BMI 44.9 Malnutrition Related to Morbid Obesity Malnutrition related to morbid obesity BMI> or equal to 40 Query Text:(Any 1 Criteria met) Malnutrition related to morbid obesity Yes Intervention/Recommendation Comments 1. Continue 60 gm CCHO diet as tolerated by patient to continue glycemic control. 2. Continue to monitor PO intake; if inadequate, can add supplementation. Expected Outcomes/Goals Expected Outcomes/Goals ORal intake >75% of meals, weight stable or decraese toward IBW, nutrition related labs WNL F/U MR
[2018-04-28] MEDS: Hydrocodone/APAP 5mg/325mg Tab PO PRN (21:46)
[2018-04-29] MEDS: Albuterol/Ipratropium Neb 3 ML AERS HHN SCH ×5 (00:49→19:48)
[2018-04-29 05:11] LABS: RED BLOOD COUNT 4.54 Mil/cmm (4.30-5.70)
[2018-04-29 05:23] LABS: HEMATOCRIT 39.1 % (41.0-60); HEMOGLOBIN 12.8 gm/dL (12-16); MEAN CELL VOLUME 86.1 fl (80-99); MEAN CORPUSCULAR HEMOGLOBIN 28.2 pg (26.0-30.0); MEAN CORPUSCULAR HGB CONC 32.7 pg (28.0-36.0); MEAN PLATELET VOLUME 7.9 fl; PLATELET COUNT 140 Th/cmm (150-400); RED CELL DISTRIBUTION WIDTH 12.7 % (11.5-20.0)
[2018-04-29 05:27] LABS: WHITE BLOOD COUNT 3.9 Th/cmm (4.8-10.8)
[2018-04-29 05:29] LABS: ALB/GLOB RATIO 1.4 (1.0-1.8); ALBUMIN 3.3 gm/dL (4.2-5.5); ALKALINE PHOSPHATASE 46 U/L (34-104); ANION GAP 10.6 (7.0-16.0); BILIRUBIN,TOTAL 0.4 mg/dL (0.3-1.0); BUN - UREA NITROGEN 9 mg/dL (7-25); CALCIUM SERUM 8.9 mg/dL (8.6-10.3); CARBON DIOXIDE 31.4 mEq/L (21.0-31.0); CHLORIDE 108 mEq/L (98-107); CREATININE - SERUM 0.7 mg/dL (0.7-1.3); GFR AFRICAN-AMERICAN > 60.0 ml/min (>90); GFR NON AFRICAN-AMERICAN > 60.0 ml/min; GLUCOSE 113 mg/dL (70-105); SGOT 83 U/L (13-39); SGPT/ALT 71 U/L (7-52); SODIUM SERUM 147 mEq/L (136-145); TOTAL PROTEIN,SERUM 5.7 gm/dL (6.0-8.3)
[2018-04-29 06:05] LABS: BAND NEUTROPHILE 5 % (0-10); EOSINOPHIL 2 % (0-5); LYMPHOCYTE 55 % (20-50); MONOCYTE 8 % (2-10); NEUTROPHILS 30 % (40-80); PLATELET ESTIMATE ADEQUATE (NORMAL)
[2018-04-29] MEDS: INSULIN LISPRO SLIDING SCALE 100 UNITS/ML UNIT SUBQ SCH ×4 (06:48→17:45)
[2018-04-29] MEDS ORDERED: Potassium Phosphate 40 MMOLE in Sodium Chloride 0.9% 250 ML IV ONE (07:28)
--- NOTE | 2018-04-29 07:54 | Diagnostic Imaging Report ---
Portable chest x-ray Time: 1858 History: Pneumonia COMPARISON: 04/26/2018 Allowing for portable technique the heart size is normal. No focal pulmonary parenchymal processes. No hilar or mediastinal abnormalities. Impression: No acute abnormalities.
[2018-04-29] MEDS: Oxybutynin Chloride 5 mg ER Tab PO SCH (08:40)
[2018-04-29] MEDS: Guaifenesin DM 10 ML UDC PO PRN ×2 (08:43→17:45)
--- NOTE | 2018-04-29 08:43 | General Progress Note ---
Subjective - Review of Systems Service Date: 04/29/18 Subjective: I am better. Objective - Results Result Diagrams: 04/29/18 04:40 04/29/18 04:40 Recent Labs: Laboratory Last Values WBC 3.9 Th/cmm (4.8-10.8) L 04/29/18 04:40 RBC 4.54 Mil/cmm (4.30-5.70) 04/29/18 04:40 Hgb 12.8 gm/dL (12-16) 04/29/18 04:40 Hct 39.1 % (41.0-60) L 04/29/18 04:40 MCV 86.1 fl (80-99) 04/29/18 04:40 MCH 28.2 pg (26.0-30.0) 04/29/18 04:40 MCHC Differential 32.7 pg (28.0-36.0) 04/29/18 04:40 RDW 12.7 % (11.5-20.0) 04/29/18 04:40 Plt Count 140 Th/cmm (150-400) L 04/29/18 04:40 MPV 7.9 fl 04/29/18 04:40 Add Manual Diff YES 04/29/18 04:40 Neutrophils % 46.0 % (40.0-80.0) 04/26/18 15:30 Band Neutrophils % 5 % (0-10) 04/29/18 04:40 Lymphocytes % 38.3 % (20.0-50.0) 04/26/18 15:30 Monocytes % 14.6 % (2.0-10.0) H 04/26/18 15:30 Eosinophils % 0.2 % (0.0-5.0) 04/26/18 15:30 Basophils % 0.9 % (0.0-2.0) 04/26/18 15:30 Neutrophils (Manual) 30 % (40-80) L 04/29/18 04:40 Lymphocytes 55 % (20-50) H 04/29/18 04:40 Monocytes 8 % (2-10) 04/29/18 04:40 Eosinophils 2 % (0-5) 04/29/18 04:40 Basophils 0 % (0-3) 04/28/18 05:56 Platelet Estimate ADEQUATE (NORMAL) 04/29/18 04:40 PT 10.7 SECONDS (9.5-11.5) 04/26/18 15:30 INR 1.03 (0.5-1.4) 04/26/18 15:30 PTT (Actin FS) 34.6 SECONDS (26.0-38.0) 04/26/18 15:30 D-Dimer 825 ng/mL (100-400) H 04/26/18 15:30 Sodium 147 mEq/L (136-145) H 04/29/18 04:40 Potassium 3.0 mEq/L (3.5-5.1) L 04/29/18 04:40 Chloride 108 mEq/L (98-107) H 04/29/18 04:40 Carbon Dioxide 31.4 mEq/L (21.0-31.0) H 04/29/18 04:40 Anion Gap 10.6 (7.0-16.0) 04/29/18 04:40 BUN 9 mg/dL (7-25) 04/29/18 04:40 Creatinine 0.7 mg/dL (0.7-1.3) 04/29/18 04:40 Est GFR ( Amer) > 60.0 ml/min (>90) 04/29/18 04:40 Est GFR (Non-Af Amer) > 60.0 ml/min 04/29/18 04:40 BUN/Creatinine Ratio 12.9 04/29/18 04:40 Glucose 113 mg/dL (70-105) H 04/29/18 04:40 POC Glucose 111 MG/DL (70 - 105) H 04/28/18 23:46 Whole Bld Lactic Acid 1.17 mmol/L (0.60-1.99) 04/26/18 15:30 Calcium 8.9 mg/dL (8.6-10.3) 04/29/18 04:40 Total Bilirubin 0.4 mg/dL (0.3-1.0) 04/29/18 04:40 AST 83 U/L (13-39) H 04/29/18 04:40 ALT 71 U/L (7-52) H 04/29/18 04:40 Alkaline Phosphatase 46 U/L (34-104) 04/29/18 04:40 Creatine Kinase 2174 U/L (30-223) H 04/28/18 05:56 CK-MB (CK-2) 10.4 ng/mL (0.6-6.3) H 04/28/18 05:56 Troponin I 0.01 ng/mL (0.01-0.05) 04/26/18 15:30 B-Natriuretic Peptide 6.0 pg/mL (5.0-100.0) 04/26/18 15:30 Total Protein 5.7 gm/dL (6.0-8.3) L 04/29/18 04:40 Albumin 3.3 gm/dL (4.2-5.5) L 04/29/18 04:40 Globulin 2.4 gm/dL 04/29/18 04:40 Albumin/Globulin Ratio 1.4 (1.0-1.8) 04/29/18 04:40 Triglycerides 122 mg/dL (<150) 04/26/18 15:30 Cholesterol 91 mg/dL (<200) 04/26/18 15:30 LDL Cholesterol Direct 46 mg/dL (75-193) L 04/26/18 15:30 HDL Cholesterol 27 mg/dL (23-92) 04/26/18 15:30 Amylase 18 U/L (29-103) L 04/26/18 15:30 Lipase 14 U/L (11-82) 04/26/18 15:30 Urine Source MIDSTREAM 04/26/18 16:46 Urine Color YELLOW 04/26/18 16:46 Urine Clarity CLEAR (CLEAR) 04/26/18 16:46 Urine pH 6.5 (4.6 - 8.0) 04/26/18 16:46 Ur Specific [place] 1.020 (1.005-1.030) 04/26/18 16:46 Urine Protein 30 mg/dL (NEGATIVE) H 04/26/18 16:46 Urine Glucose (UA) NEGATIVE mg/dL (NEGATIVE) 04/26/18 16:46 Urine Ketones NEGATIVE mg/dL (NEGATIVE) 04/26/18 16:46 Urine Blood LARGE (NEGATIVE) H 04/26/18 16:46 Urine Nitrate NEGATIVE (NEGATIVE) 04/26/18 16:46 Urine Bilirubin NEGATIVE (NEGATIVE) 04/26/18 16:46 Urine Urobilinogen 0.2 E.U./dL (0.2 - 1.0) 04/26/18 16:46 Ur Leukocyte Esterase NEGATIVE (NEGATIVE) 04/26/18 16:46 Urine RBC 5-10 /hpf (0-5) H 04/26/18 16:46 Urine WBC 0-2 /hpf (0-5) 04/26/18 16:46 Ur Epithelial Cells FEW /lpf (FEW) 04/26/18 16:46 Urine Bacteria FEW /hpf (NONE SEEN) 04/26/18 16:46 Coarse Granular Casts 0-2 /lpf (NONE SEEN) H 04/26/18 16:46 Urine Opiates Screen POSITIVE (NEGATIVE) H 04/27/18 06:00 Urine Methadone Screen NEGATIVE (NEGATIVE) 04/27/18 06:00 Ur Barbiturates Screen NEGATIVE (NEGATIVE) 04/27/18 06:00 Ur Tricyclics Screen POSITIVE (NEGATIVE) H 04/27/18 06:00 Ur Phencyclidine Scrn NEGATIVE (NEGATIVE) 04/27/18 06:00 Amphetamines Screen NEGATIVE (NEGATIVE) 04/27/18 06:00 U Methamphetamines Scrn NEGATIVE (NEGATIVE) 04/27/18 06:00 U Benzodiazepines Scrn POSITIVE (NEGATIVE) H 04/27/18 06:00 U Cocaine Metab Screen NEGATIVE (NEGATIVE) 04/27/18 06:00 U Cannabinoids Screen NEGATIVE (NEGATIVE) 04/27/18 06:00 Influenza A (Rapid) POS FOR INF A H 04/27/18 13:07 Influenza B (Rapid) NEG FOR INF B 04/27/18 13:07 - Physical Exam Vitals and I&O: Vital Signs Temp 96.7 F 04/29/18 07:37 Pulse 81 04/29/18 07:37 Resp 20 04/29/18 07:37 BP 122/77 04/29/18 07:37 Pulse Ox 97 04/29/18 07:37 Intake & Output 04/28/18 04/29/18 04/29/18 18:59 06:59 18:59 Intake Total 5027.583 0857.25 Balance 8590.161 4210.25 Weight (lbs) 133.81 kg 133.81 kg Intake: Intake, IV Amount 954.167 981.25 Sodium Chloride 0.9% 1, 954.167 981.25 000 ml @ 125 mls/hr IV . Q8H [facility] Rx#:[id number] Oral 900 600 Other: # Voids 4 3 # Bowel Movements 1 1 Stool Characteristics Soft Soft Weight Source Bedscale Bedscale Active Medications: Current Medications Acetaminophen (Tylenol) 650 mg PO Q6H PRN PRN Reason: Pain (Mild) Stop: 06/27/18 01:51 Last Admin: 04/29/18 01:41 Dose: 650 mg Acetaminophen/Hydrocodone Bitart ([place] 5mg/325mg) 1 tab PO BID PRN PRN Reason: Pain (Moderate) Stop: 06/25/18 22:08 Last Admin: 04/28/18 21:46 Dose: 1 tab Albuterol/Ipratropium (Duoneb Neb) 3 ml HHN Q6HRT [facility] Stop: 06/26/18 12:59 Last Admin: 04/29/18 07:02 Dose: 3 ml Aspirin (Ecotrin) 81 mg PO DAILY [facility] Stop: 06/26/18 08:59 Last Admin: 04/28/18 08:13 Dose: 81 mg Dextrose (D50w) 50 ml IVP PRN PRN PRN Reason: Blood Glucose less than 70 Stop: 06/25/18 22:40 Dextrose (Glutose 40%) 18.75 gm PO PRN PRN PRN Reason: Blood Glucose less than 70 Stop: 06/25/18 22:40 Ergocalciferol (Vitamin D2) 50,000 iu PO QMON [facility] Stop: 06/25/18 22:14 Last Admin: 04/27/18 16:57 Dose: Not Given Furosemide (Lasix) 20 mg PO DAILY [facility] Stop: 06/26/18 08:59 Last Admin: 04/28/18 08:13 Dose: 20 mg Gabapentin (Neurontin) 600 mg PO TID [facility] Stop: 06/26/18 08:59 Last Admin: 04/28/18 21:37 Dose: 600 mg Glucagon (Glucagen) 1 mg IM PRN PRN PRN Reason: Blood Glucose less than 70 Stop: 06/25/18 22:40 Guaifenesin/Dextromethorphan (Robitussin Dm) 10 ml PO Q6HR PRN PRN Reason: Cough Stop: 06/26/18 01:04 Last Admin: 04/28/18 21:36 Dose: 10 ml Potassium Chloride (Potassium Chloride) 20 meq in 100 mls @ 50 mls/hr IV Q2H [facility] Stop: 04/29/18 12:59 Dextrose/Sodium Chloride (D5-0.45ns) 1,000 mls @ 125 mls/hr IV .Q8H [facility] Stop: 06/28/18 08:44 Insulin Human Lispro (Humalog Insulin Sliding Scale) 0 units SUBQ Q6HR [facility]; Protocol Stop: 06/26/18 00:00 Last Admin: 04/29/18 06:48 Dose: Not Given Levofloxacin (Levaquin) 500 mg PO DAILY [facility] Stop: 06/27/18 08:59 Last Admin: 04/28/18 08:13 Dose: 500 mg Loperamide HCl (Imodium) 2 mg PO Q4H PRN PRN Reason: Diarrhea Stop: 06/25/18 22:08 Last Admin: 04/29/18 01:45 Dose: 2 mg Lorazepam (Ativan) 1 mg PO DAILY [facility]; Protocol Stop: 06/26/18 08:59 Last Admin: 04/28/18 08:13 Dose: 1 mg Oseltamivir Phosphate (Tamiflu) 75 mg PO BID [facility] Stop: 06/26/18 16:59 Last Admin: 04/28/18 16:08 Dose: 75 mg Oxybutynin Chloride (Ditropan Xl) 10 mg PO DAILY [facility] Stop: 06/26/18 08:59 Last Admin: 04/28/18 08:13 Dose: 10 mg Zolpidem Tartrate (Ambien) 5 mg PO HS PRN PRN Reason: Insomnia Stop: 06/26/18 22:07 Last Admin: 04/28/18 21:37 Dose: 5 mg General: Alert, Oriented x3 HEENT: PERRLA Neck: Supple Cardiovascular: Regular rate Lungs: Clear to auscultation Abdomen: Bowel sounds, Soft Extremities: Other (No edema) Neurological: Normal gait Skin: Other (Warm and dry) Psych/Mental Status: Mental status NL Assessment/Plan - Problem List Patient Problems: All Active Problems COUGH WITH PURULENT SPUTUM (Acute) - Assessment Assessment: Current Active Problems Problem Status Onset COUGH WITH PURULENT SPUTUM Acute Patient is awake, alert, calm in no acute distress. CK improving, less cough. Dx : PNA, Rhabdomyolisis, Elevated D-dimers, Dehydration, HTN, DM, HIV. - Plan Plan: Patient is in IV NS, IV AB, Breathing treatment, Pain control, Insulin sliding scale, Diabetic diet, patient follow by ID. Case discussed with ID and patient will be DC tomorrow. Will continue to monitor. Nutritional Asmnt/Malnutr-PDOC - Dietary Evaluation Malnutrition Findings (Please click <Entered> for more info): Nutritional Asmnt/Malnutrition Start: 04/27/18 12: 29 Text: Status: Complete Freq: Protocol: Document 04/27/18 12:29 CONOR (Rec: 04/27/18 12:45 CONOR [email or web address]- [email or web address]) Nutritional Asmnt/Malnutrition Patient General Information Nutritional Screening High Risk Consult Diagnosis Possible PE Pertinent Medical Hx/Surgical Hx HTN, asthma, anxiety, depression, HIV, diabetes Subjective Information Patient not in bed at time of visit. Current Diet Order/ Nutrition Support 60 gm CCHO Patient / S.O Not Indicated Pertinent Medications D50W, Vitamin D2, lasix, glucoagon, HUmalog, imodium Pertinent Labs (04/27) AST 181, ALT 79 ( decreasing), CK 6408 ( decreasing), ALbumin 3.4 ( decreasing) Nutritional Hx/Data Height 1.73 m Height (Calculated Centimeters) 172.7 Current Weight (lbs) 133.81 kg Weight (Calculated Kilograms) 133.8 Weight (Calculated Grams) 546574.7 [place] Body Weight 154 % [place] Body Weight 191 Body Mass Index (BMI) 44.8 Weight Status Morbidly Obese GI Symptoms GI Symptoms None Last BM none noted in EMR Difficult in: None Food Allergies No Cultural/Ethnic/[employer] Belief none indicated Usual diet at home unknown Skin Integrity/Comment: carrie Tinajero Estimated Nutritional Goals BEE in Kcals: Adj wt of IBW Calories/Kcals/Kg Adj wt 86kg 25-30 kcal/kg Kcals Calculated ~4150-1475 kcal/day Protein: Adj wt of IBW Protein g/k-1.2 gm/kg using Adj wt Protein Calculated 85-105 gm/day Fluid: ml ~0465-0403 ml/day Nutritional Problem 1. Problem Problem Malnutrition related to Etiology morbid obesity aeb Signs/Symptoms: BMI 44.9 Malnutrition Related to Morbid Obesity Malnutrition related to morbid obesity BMI> or equal to 40 Query Text:(Any 1 Criteria met) Malnutrition related to morbid obesity Yes Intervention/Recommendation Comments 1. Continue 60 gm CCHO diet as tolerated by patient to continue glycemic control. 2. Continue to monitor PO intake; if inadequate, can add supplementation. Expected Outcomes/Goals Expected Outcomes/Goals ORal intake >75% of meals, weight stable or decraese toward IBW, nutrition related labs WNL F/U MR
[2018-04-29] MEDS ORDERED: D5-0.45NS 1,000 ML IV SCH (08:45)
--- NOTE | 2018-04-29 08:50 | Infectious Disease Prog Note ---
Infectious Disease Subjective - Review of Systems Service Date: 04/29/18 Subjective: There is no new change, no fever. Infectious Disease Objective - Results Result Diagrams: 04/29/18 04:40 04/29/18 04:40 Recent Labs: Laboratory Last Values WBC 3.9 Th/cmm (4.8-10.8) L 04/29/18 04:40 RBC 4.54 Mil/cmm (4.30-5.70) 04/29/18 04:40 Hgb 12.8 gm/dL (12-16) 04/29/18 04:40 Hct 39.1 % (41.0-60) L 04/29/18 04:40 MCV 86.1 fl (80-99) 04/29/18 04:40 MCH 28.2 pg (26.0-30.0) 04/29/18 04:40 MCHC Differential 32.7 pg (28.0-36.0) 04/29/18 04:40 RDW 12.7 % (11.5-20.0) 04/29/18 04:40 Plt Count 140 Th/cmm (150-400) L 04/29/18 04:40 MPV 7.9 fl 04/29/18 04:40 Add Manual Diff YES 04/29/18 04:40 Neutrophils % 46.0 % (40.0-80.0) 04/26/18 15:30 Band Neutrophils % 5 % (0-10) 04/29/18 04:40 Lymphocytes % 38.3 % (20.0-50.0) 04/26/18 15:30 Monocytes % 14.6 % (2.0-10.0) H 04/26/18 15:30 Eosinophils % 0.2 % (0.0-5.0) 04/26/18 15:30 Basophils % 0.9 % (0.0-2.0) 04/26/18 15:30 Neutrophils (Manual) 30 % (40-80) L 04/29/18 04:40 Lymphocytes 55 % (20-50) H 04/29/18 04:40 Monocytes 8 % (2-10) 04/29/18 04:40 Eosinophils 2 % (0-5) 04/29/18 04:40 Basophils 0 % (0-3) 04/28/18 05:56 Platelet Estimate ADEQUATE (NORMAL) 04/29/18 04:40 PT 10.7 SECONDS (9.5-11.5) 04/26/18 15:30 INR 1.03 (0.5-1.4) 04/26/18 15:30 PTT (Actin FS) 34.6 SECONDS (26.0-38.0) 04/26/18 15:30 D-Dimer 825 ng/mL (100-400) H 04/26/18 15:30 Sodium 147 mEq/L (136-145) H 04/29/18 04:40 Potassium 3.0 mEq/L (3.5-5.1) L 04/29/18 04:40 Chloride 108 mEq/L (98-107) H 04/29/18 04:40 Carbon Dioxide 31.4 mEq/L (21.0-31.0) H 04/29/18 04:40 Anion Gap 10.6 (7.0-16.0) 04/29/18 04:40 BUN 9 mg/dL (7-25) 04/29/18 04:40 Creatinine 0.7 mg/dL (0.7-1.3) 04/29/18 04:40 Est GFR ( Amer) > 60.0 ml/min (>90) 04/29/18 04:40 Est GFR (Non-Af Amer) > 60.0 ml/min 04/29/18 04:40 BUN/Creatinine Ratio 12.9 04/29/18 04:40 Glucose 113 mg/dL (70-105) H 04/29/18 04:40 POC Glucose 111 MG/DL (70 - 105) H 04/28/18 23:46 Whole Bld Lactic Acid 1.17 mmol/L (0.60-1.99) 04/26/18 15:30 Calcium 8.9 mg/dL (8.6-10.3) 04/29/18 04:40 Total Bilirubin 0.4 mg/dL (0.3-1.0) 04/29/18 04:40 AST 83 U/L (13-39) H 04/29/18 04:40 ALT 71 U/L (7-52) H 04/29/18 04:40 Alkaline Phosphatase 46 U/L (34-104) 04/29/18 04:40 Creatine Kinase 2174 U/L (30-223) H 04/28/18 05:56 CK-MB (CK-2) 10.4 ng/mL (0.6-6.3) H 04/28/18 05:56 Troponin I 0.01 ng/mL (0.01-0.05) 04/26/18 15:30 B-Natriuretic Peptide 6.0 pg/mL (5.0-100.0) 04/26/18 15:30 Total Protein 5.7 gm/dL (6.0-8.3) L 04/29/18 04:40 Albumin 3.3 gm/dL (4.2-5.5) L 04/29/18 04:40 Globulin 2.4 gm/dL 04/29/18 04:40 Albumin/Globulin Ratio 1.4 (1.0-1.8) 04/29/18 04:40 Triglycerides 122 mg/dL (<150) 04/26/18 15:30 Cholesterol 91 mg/dL (<200) 04/26/18 15:30 LDL Cholesterol Direct 46 mg/dL (75-193) L 04/26/18 15:30 HDL Cholesterol 27 mg/dL (23-92) 04/26/18 15:30 Amylase 18 U/L (29-103) L 04/26/18 15:30 Lipase 14 U/L (11-82) 04/26/18 15:30 Urine Source MIDSTREAM 04/26/18 16:46 Urine Color YELLOW 04/26/18 16:46 Urine Clarity CLEAR (CLEAR) 04/26/18 16:46 Urine pH 6.5 (4.6 - 8.0) 04/26/18 16:46 Ur Specific [place] 1.020 (1.005-1.030) 04/26/18 16:46 Urine Protein 30 mg/dL (NEGATIVE) H 04/26/18 16:46 Urine Glucose (UA) NEGATIVE mg/dL (NEGATIVE) 04/26/18 16:46 Urine Ketones NEGATIVE mg/dL (NEGATIVE) 04/26/18 16:46 Urine Blood LARGE (NEGATIVE) H 04/26/18 16:46 Urine Nitrate NEGATIVE (NEGATIVE) 04/26/18 16:46 Urine Bilirubin NEGATIVE (NEGATIVE) 04/26/18 16:46 Urine Urobilinogen 0.2 E.U./dL (0.2 - 1.0) 04/26/18 16:46 Ur Leukocyte Esterase NEGATIVE (NEGATIVE) 04/26/18 16:46 Urine RBC 5-10 /hpf (0-5) H 04/26/18 16:46 Urine WBC 0-2 /hpf (0-5) 04/26/18 16:46 Ur Epithelial Cells FEW /lpf (FEW) 04/26/18 16:46 Urine Bacteria FEW /hpf (NONE SEEN) 04/26/18 16:46 Coarse Granular Casts 0-2 /lpf (NONE SEEN) H 04/26/18 16:46 Urine Opiates Screen POSITIVE (NEGATIVE) H 04/27/18 06:00 Urine Methadone Screen NEGATIVE (NEGATIVE) 04/27/18 06:00 Ur Barbiturates Screen NEGATIVE (NEGATIVE) 04/27/18 06:00 Ur Tricyclics Screen POSITIVE (NEGATIVE) H 04/27/18 06:00 Ur Phencyclidine Scrn NEGATIVE (NEGATIVE) 04/27/18 06:00 Amphetamines Screen NEGATIVE (NEGATIVE) 04/27/18 06:00 U Methamphetamines Scrn NEGATIVE (NEGATIVE) 04/27/18 06:00 U Benzodiazepines Scrn POSITIVE (NEGATIVE) H 04/27/18 06:00 U Cocaine Metab Screen NEGATIVE (NEGATIVE) 04/27/18 06:00 U Cannabinoids Screen NEGATIVE (NEGATIVE) 04/27/18 06:00 Influenza A (Rapid) POS FOR INF A H 04/27/18 13:07 Influenza B (Rapid) NEG FOR INF B 04/27/18 13:07 - Physical Exam Vitals and I&O: Vital Signs Temp 96.7 F 04/29/18 07:37 Pulse 81 04/29/18 07:37 Resp 20 04/29/18 07:37 BP 122/77 04/29/18 08:41 Pulse Ox 97 04/29/18 07:37 Intake & Output 04/28/18 04/29/18 04/29/18 18:59 06:59 18:59 Intake Total 1070.672 1357.25 Balance 7397.914 0400.25 Weight (lbs) 133.81 kg 133.81 kg Intake: Intake, IV Amount 954.167 981.25 Sodium Chloride 0.9% 1, 954.167 981.25 000 ml @ 125 mls/hr IV . Q8H [facility] Rx#:[id number] Oral 900 600 Other: # Voids 4 3 # Bowel Movements 1 1 Stool Characteristics Soft Soft Weight Source Bedscale Bedscale Active Medications: Current Medications Acetaminophen (Tylenol) 650 mg PO Q6H PRN PRN Reason: Pain (Mild) Stop: 06/27/18 01:51 Last Admin: 04/29/18 01:41 Dose: 650 mg Acetaminophen/Hydrocodone Bitart (Weed 5mg/325mg) 1 tab PO BID PRN PRN Reason: Pain (Moderate) Stop: 06/25/18 22:08 Last Admin: 04/28/18 21:46 Dose: 1 tab Albuterol/Ipratropium (Duoneb Neb) 3 ml HHN Q6HRT [facility] Stop: 06/26/18 12:59 Last Admin: 04/29/18 07:02 Dose: 3 ml Aspirin (Ecotrin) 81 mg PO DAILY [facility] Stop: 06/26/18 08:59 Last Admin: 04/29/18 08:41 Dose: 81 mg Dextrose (D50w) 50 ml IVP PRN PRN PRN Reason: Blood Glucose less than 70 Stop: 06/25/18 22:40 Dextrose (Glutose 40%) 18.75 gm PO PRN PRN PRN Reason: Blood Glucose less than 70 Stop: 06/25/18 22:40 Ergocalciferol (Vitamin D2) 50,000 iu PO QMON [facility] Stop: 06/25/18 22:14 Last Admin: 04/27/18 16:57 Dose: Not Given Furosemide (Lasix) 20 mg PO DAILY [facility] Stop: 06/26/18 08:59 Last Admin: 04/29/18 08:41 Dose: 20 mg Gabapentin (Neurontin) 600 mg PO TID [facility] Stop: 06/26/18 08:59 Last Admin: 04/29/18 08:40 Dose: 600 mg Glucagon (Glucagen) 1 mg IM PRN PRN PRN Reason: Blood Glucose less than 70 Stop: 06/25/18 22:40 Guaifenesin/Dextromethorphan (Robitussin Dm) 10 ml PO Q6HR PRN PRN Reason: Cough Stop: 06/26/18 01:04 Last Admin: 04/29/18 08:43 Dose: 10 ml Potassium Chloride (Potassium Chloride) 20 meq in 100 mls @ 50 mls/hr IV Q2H [facility] Stop: 04/29/18 12:59 Dextrose/Sodium Chloride (D5-0.45ns) 1,000 mls @ 125 mls/hr IV .Q8H [facility] Stop: 06/28/18 08:44 Insulin Human Lispro (Humalog Insulin Sliding Scale) 0 units SUBQ Q6HR [facility]; Protocol Stop: 06/26/18 00:00 Last Admin: 04/29/18 06:48 Dose: Not Given Levofloxacin (Levaquin) 500 mg PO DAILY [facility] Stop: 06/27/18 08:59 Last Admin: 04/29/18 08:41 Dose: 500 mg Loperamide HCl (Imodium) 2 mg PO Q4H PRN PRN Reason: Diarrhea Stop: 06/25/18 22:08 Last Admin: 04/29/18 01:45 Dose: 2 mg Lorazepam (Ativan) 1 mg PO DAILY [facility]; Protocol Stop: 06/26/18 08:59 Last Admin: 04/29/18 08:40 Dose: 1 mg Oseltamivir Phosphate (Tamiflu) 75 mg PO BID [facility] Stop: 06/26/18 16:59 Last Admin: 04/29/18 08:40 Dose: 75 mg Oxybutynin Chloride (Ditropan Xl) 10 mg PO DAILY [facility] Stop: 06/26/18 08:59 Last Admin: 04/29/18 08:40 Dose: 10 mg Zolpidem Tartrate (Ambien) 5 mg PO HS PRN PRN Reason: Insomnia Stop: 06/26/18 22:07 Last Admin: 04/28/18 21:37 Dose: 5 mg General: no acute distress, well developed, well nourished HEENT: atraumatic, normocephalic, PERRLA, EOMI Neck: supple, no thyromegaly Cardiovascular: S1S2, regular Lungs: clear to auscultation bilaterally, clear to percussion Abdomen: soft, no tender, no distended Extremities: no cyanosis, no clubbing, no edema Neurological: awake, alert, oriented Skin: intact Infectious Disease Assmt/Plan - Problem List Patient Problems: All Active Problems COUGH WITH PURULENT SPUTUM (Acute) - Assessment Assessment: 1. bronchitis. Influenza A infection. 2. HIV. 3. Rhabdomyolysis. 4. HTN. 5. DM2 - Plan Plan: Continue levaquin. Continue Tamiflu. Continue IVF for rhabdo. Check HIV RNA PCR and CD4 count. Nutritional Asmnt/Malnutr-PDOC - Dietary Evaluation Malnutrition Findings (Please click <Entered> for more info): Nutritional Asmnt/Malnutrition Start: 04/27/18 12: 29 Text: Status: Complete Freq: Protocol: Document 04/27/18 12:29 [email or web address] (Rec: 04/27/18 12:45 [email or web address] [id number]) Nutritional Asmnt/Malnutrition Patient General Information Nutritional Screening High Risk Consult Diagnosis Possible PE Pertinent Medical Hx/Surgical Hx HTN, asthma, anxiety, depression, HIV, diabetes Subjective Information Patient not in bed at time of visit. Current Diet Order/ Nutrition Support 60 gm CCHO Patient / S.O Not Indicated Pertinent Medications D50W, Vitamin D2, lasix, glucoagon, HUmalog, imodium Pertinent Labs (04/27) AST 181, ALT 79 ( decreasing), CK 6408 ( decreasing), ALbumin 3.4 ( decreasing) Nutritional Hx/Data Height 1.73 m Height (Calculated Centimeters) 172.7 Current Weight (lbs) 133.81 kg Weight (Calculated Kilograms) 133.8 Weight (Calculated Grams) 985204.7 Wever Body Weight 154 % Wever Body Weight 191 Body Mass Index (BMI) 44.8 Weight Status Morbidly Obese GI Symptoms GI Symptoms None Last BM none noted in EMR Difficult in: None Food Allergies No Cultural/Ethnic/Rastafari Belief none indicated Usual diet at home unknown Skin Integrity/Comment: carrie Tinajero Estimated Nutritional Goals BEE in Kcals: Adj wt of IBW Calories/Kcals/Kg Adj wt 86kg 25-30 kcal/kg Kcals Calculated ~3715-6807 kcal/day Protein: Adj wt of IBW Protein g/k-1.2 gm/kg using Adj wt Protein Calculated 85-105 gm/day Fluid: ml ~1035-3946 ml/day Nutritional Problem 1. Problem Problem Malnutrition related to Etiology morbid obesity aeb Signs/Symptoms: BMI 44.9 Malnutrition Related to Morbid Obesity Malnutrition related to morbid obesity BMI> or equal to 40 Query Text:(Any 1 Criteria met) Malnutrition related to morbid obesity Yes Intervention/Recommendation Comments 1. Continue 60 gm CCHO diet as tolerated by patient to continue glycemic control. 2. Continue to monitor PO intake; if inadequate, can add supplementation. Expected Outcomes/Goals Expected Outcomes/Goals ORal intake >75% of meals, weight stable or decraese toward IBW, nutrition related labs WNL F/U MR
[2018-04-29] MEDS ORDERED: KCL 20mEq/100mL Premix 20 MEQ/100 ML PIGGYBACK IV SCH (09:00)
[2018-04-29] MEDS ORDERED: Potassium Chloride 20 mEq ER Tab PO ONE (10:14)
--- NOTE | 2018-04-29 10:51 | Consultation ---
DATE OF CONSULTATION: REFERRING PHYSICIAN: Dr. Echols. REASON FOR CONSULT: Respiratory insufficiency, history of asthma/COPD exacerbation, likely pneumonia; rhabdomyolysis; transaminitis; influenza A. HISTORY OF PRESENT ILLNESS: The patient is a very nice 57-year-old gentleman, who was transferred from a local group home with a few days, couple of weeks of cough, at times congestive; pleural chest pain; generalized weakness and tiredness and overall malaise. He has a history significant for being HIV positive, diagnosed in 1991; history of asthma for the last 5-10 years; type 2 diabetes; hypertension; hyperlipidemia; previous smoker. He states that his last CD4 counts have been around 800 level and viral loads have been undetected for a while. He states that he had one AIDS related ailment about 8 years ago when he had a bad infection, but was not able to elaborate at this time. He came in to the ER on the for the above-mentioned complaints with pertinent findings being as follows: D-dimer level of 825, creatine kinase of 8728, influenza A positive, mild hyponatremia and hypokalemia. The patient was admitted to the [facility] where he has been doing well with improvement of his symptoms. On further questioning, the patient states that he was diagnosed as noted above with asthma a few years ago, but quit smoking roughly about 20 years ago. He denies any history of PCP pneumonia and currently denies any fever or chills. He does have a productive cough at times with yellowish phlegm. PAST MEDICAL HISTORY: As noted above. PAST SURGICAL HISTORY: Cholecystectomy, many years ago; and left hernia repair many years ago. FAMILY HISTORY: Mom suffered from COPD. She apparently had a lung excision secondary to possible neoplasm, but patient is not 100% sure. SOCIAL HISTORY: No alcohol. No illicit drug usage. He smoked for about 20 years. He quit 20 years ago and used to smoke 1 pack every other day. ALLERGIES: SULFA. OUTPATIENT MEDICATIONS: Glucophage 500 mg p.o. b.i.d.; Lasix 20 mg daily; losartan 50 mg daily; vitamin D 50,000 units every week; loperamide 2 mg every 6 hours as needed; albuterol 2 puffs q.4-6 hours p.r.n. for SOB; aspirin 81 daily; Mytesi 125 mg b.i.d.; Biktarvy 50/200/25 one tab daily; nystatin topical powder as needed p.r.n.; loratadine 10 mg daily; atorvastatin 10 daily; Lamictal 100 mg 2-1/2 tabs at bedtime; duloxetine 20 mg b.i.d.; Abilify 5 q.a.m.; lorazepam 1 mg 1-1/2 tabs at bedtime p.r.n. for anxiety; amitriptyline 25 mg 3 tabs at bedtime; hydrocodone 5/325 b.i.d.; gabapentin 200 mg 2 tabs 3 times a day; Breo Ellipta 200/25 daily, diclofenac gel apply to affected area 3-4 times a day p.r.n.; oxybutynin 10 mg daily; Topamax 25 b.i.d. REVIEW OF SYSTEMS: CONSTITUTIONAL: Generalized weakness, tiredness for the last few weeks. Denies any known weight loss. CARDIAC: No chest pain or palpitations. PULMONARY: Please refer to the HPI. CARDIAC: Denies any chest pain, any annuloaortic ectasia pathology. GASTROINTESTINAL: Currently, no bowel changes. GENITOURINARY: No bladder habit changes. NEUROLOGIC: No changes in vision, no headaches, no seizure activity. Denies any syncope. PHYSICAL EXAMINATION: VITAL SIGNS: Temperature 97.6, pulse 81, respirations 20, BP 122/77, satting 97% on 2 liters. GENERAL: He is a well-developed, obese male, currently comfortable, in no acute distress. He is nontoxic appearing, able to answer questions appropriately and speaking in 2-3 words sentences. HEAD AND NECK: Normocephalic, atraumatic. Pupils are reactive to light. Extraocular movements are intact. Oropharynx moist and clear. CARDIAC: Regular rate and rhythm without any murmurs. LUNGS: He has got some crackles and noticeable inspiratory and expiratory wheezing on both lungs. ABDOMEN: Soft, supple, nontender, nondistended, normoactive bowel sounds. EXTREMITIES: Lower extremities: No pedal edema. NEUROLOGIC: Grossly intact and nonfocal. LABORATORY DATA: Please refer to the HPI. Currently white count 3.9 and H and H 12/39 with a platelet count of 140. Sodium 147, potassium 3.0, chloride 108, CO2 31, BUN 9, creatinine 0.7, glucose 113, ALT 71, AST 83, total protein 5.7, albumin 3.3. DIAGNOSTICS: X-ray on admission done on 04/26/2018 shows no acute abnormalities. Chest, abdomen and pelvis CTA showed no abnormalities. Lower extremity duplex venous ultrasound showing no evidence of DVT and a repeat x-ray done on the showed no acute abnormalities. ASSESSMENT: 1. Respiratory distress likely secondary copd/asthma exacerbation in conjunction with Influenza A infx. R/O PNA vs. early bronchitis. 2. Rule out pneumonia versus tracheobronchitis. 3. History of bronchial asthma/copd. 3. Rhabdomyolysis. 4. Elevated transaminitis. 5. Elevated D-dimer. 6. History of human immunodeficiency virus. 7. History of type 2 diabetes. 8. Essential hypertension. 9. Hyperlipidemia. PLAN: The patient is to remain on current tele, supportive care and management. The patient is on IV fluids, pulmonary toilet and has been kept on his medications as scheduled. He is currently on Levaquin and I will also start him on IV and inhaled steroids given his current physical findings. The patient also is being followed by ID given his HIV status. We will follow cultures and labs. I would like to thank Dr. Echols for allowing me to participate in this case. [facility]# [id number] [facility]ITALKervin
[2018-04-29] MEDS: D5-0.45NS 1,000 ML IV SCH ×2 (12:32→21:43)
[2018-04-29] MEDS ORDERED: methylPREDNISolone SS 40 mg Vial IVP SCH (13:00)
[2018-04-29] MEDS: Budesonide 0.5 Mg/2 mL Ud HHN SCH (19:48)
[2018-04-29] MEDS: Hydrocodone/APAP 5mg/325mg Tab PO PRN (21:42)
[2018-04-30] MEDS: INSULIN LISPRO SLIDING SCALE 100 UNITS/ML UNIT SUBQ SCH ×4 (00:12→18:18)
[2018-04-30] MEDS: Albuterol/Ipratropium Neb 3 ML AERS HHN SCH ×4 (01:13→19:24)
[2018-04-30] MEDS: Guaifenesin DM 10 ML UDC PO PRN ×2 (01:28→11:24)
[2018-04-30] MEDS: Hydrocodone/APAP 5mg/325mg Tab PO PRN (05:27)
[2018-04-30 05:45] LABS: % BASOPHILS 0.7 % (0.0-2.0); % EOSINOPHILS 0.2 % (0.0-5.0); % LYMPHOCYTES 23.6 % (20.0-50.0); % MONOCYTES 3.8 % (2.0-10.0); % NEUTROPHILS 71.7 % (40.0-80.0); HEMATOCRIT 41.7 % (41.0-60); HEMOGLOBIN 13.5 gm/dL (12-16); LYMPHOCYTE ABSOLUTE 1.5 Th/cmm (1.5-3.0); MEAN CELL VOLUME 86.2 fl (80-99); MEAN CORPUSCULAR HEMOGLOBIN 27.9 pg (26.0-30.0); MEAN CORPUSCULAR HGB CONC 32.4 pg (28.0-36.0); MEAN PLATELET VOLUME 8.7 fl; MONOCYTE ABSOLUTE 0.2 Th/cmm (0.3-1.0); NEUTROPHILE ABSOLUTE 4.5 Th/cmm (1.8-8.0); PLATELET COUNT 184 Th/cmm (150-400); RED BLOOD COUNT 4.84 Mil/cmm (4.30-5.70); RED CELL DISTRIBUTION WIDTH 12.8 % (11.5-20.0); WHITE BLOOD COUNT 6.2 Th/cmm (4.8-10.8)
[2018-04-30 06:15] LABS: ALB/GLOB RATIO 1.2 (1.0-1.8); ALBUMIN 3.7 gm/dL (4.2-5.5); ALKALINE PHOSPHATASE 50 U/L (34-104); ANION GAP 13.1 (7.0-16.0); BILIRUBIN,TOTAL 0.4 mg/dL (0.3-1.0); BUN - UREA NITROGEN 11 mg/dL (7-25); CALCIUM SERUM 9.6 mg/dL (8.6-10.3); CARBON DIOXIDE 28.1 mEq/L (21.0-31.0); CHLORIDE 106 mEq/L (98-107); CREATININE - SERUM 0.7 mg/dL (0.7-1.3); GFR AFRICAN-AMERICAN > 60.0 ml/min (>90); GFR NON AFRICAN-AMERICAN > 60.0 ml/min; GLUCOSE 128 mg/dL (70-105); MAGNESIUM 1.7 mg/dL (1.9-2.7); POTASSIUM SERUM 3.2 mEq/L (3.5-5.1); SGOT 55 U/L (13-39); SGPT/ALT 73 U/L (7-52); SODIUM SERUM 144 mEq/L (136-145); TOTAL PROTEIN,SERUM 6.7 gm/dL (6.0-8.3)
[2018-04-30] MEDS: Budesonide 0.5 Mg/2 mL Ud HHN SCH ×2 (06:51→19:25)
[2018-04-30] MEDS ORDERED: Potassium Chloride 20 mEq ER Tab PO ONE (07:47)
--- NOTE | 2018-04-30 08:50 | General Progress Note ---
Subjective - Review of Systems Service Date: 04/30/18 Subjective: I am fine. Objective - Results Result Diagrams: 04/30/18 05:30 04/30/18 05:30 Recent Labs: Laboratory Last Values WBC 6.2 Th/cmm (4.8-10.8) 04/30/18 05:30 RBC 4.84 Mil/cmm (4.30-5.70) 04/30/18 05:30 Hgb 13.5 gm/dL (12-16) 04/30/18 05:30 Hct 41.7 % (41.0-60) 04/30/18 05:30 MCV 86.2 fl (80-99) 04/30/18 05:30 MCH 27.9 pg (26.0-30.0) 04/30/18 05:30 MCHC Differential 32.4 pg (28.0-36.0) 04/30/18 05:30 RDW 12.8 % (11.5-20.0) 04/30/18 05:30 Plt Count 184 Th/cmm (150-400) 04/30/18 05:30 MPV 8.7 fl 04/30/18 05:30 Add Manual Diff YES 04/29/18 04:40 Neutrophils % 71.7 % (40.0-80.0) 04/30/18 05:30 Band Neutrophils % 5 % (0-10) 04/29/18 04:40 Lymphocytes % 23.6 % (20.0-50.0) 04/30/18 05:30 Monocytes % 3.8 % (2.0-10.0) 04/30/18 05:30 Eosinophils % 0.2 % (0.0-5.0) 04/30/18 05:30 Basophils % 0.7 % (0.0-2.0) 04/30/18 05:30 Neutrophils (Manual) 30 % (40-80) L 04/29/18 04:40 Lymphocytes 55 % (20-50) H 04/29/18 04:40 Monocytes 8 % (2-10) 04/29/18 04:40 Eosinophils 2 % (0-5) 04/29/18 04:40 Basophils 0 % (0-3) 04/28/18 05:56 Platelet Estimate ADEQUATE (NORMAL) 04/29/18 04:40 PT 10.7 SECONDS (9.5-11.5) 04/26/18 15:30 INR 1.03 (0.5-1.4) 04/26/18 15:30 PTT (Actin FS) 34.6 SECONDS (26.0-38.0) 04/26/18 15:30 D-Dimer 825 ng/mL (100-400) H 04/26/18 15:30 Sodium 144 mEq/L (136-145) 04/30/18 05:30 Potassium 3.2 mEq/L (3.5-5.1) L 04/30/18 05:30 Chloride 106 mEq/L (98-107) 04/30/18 05:30 Carbon Dioxide 28.1 mEq/L (21.0-31.0) 04/30/18 05:30 Anion Gap 13.1 (7.0-16.0) 04/30/18 05:30 BUN 11 mg/dL (7-25) 04/30/18 05:30 Creatinine 0.7 mg/dL (0.7-1.3) 04/30/18 05:30 Est GFR ( Amer) > 60.0 ml/min (>90) 04/30/18 05:30 Est GFR (Non-Af Amer) > 60.0 ml/min 04/30/18 05:30 BUN/Creatinine Ratio 15.7 04/30/18 05:30 Glucose 128 mg/dL (70-105) H 04/30/18 05:30 POC Glucose 118 MG/DL (70 - 105) H 04/30/18 05:35 Whole Bld Lactic Acid 1.17 mmol/L (0.60-1.99) 04/26/18 15:30 Calcium 9.6 mg/dL (8.6-10.3) 04/30/18 05:30 Magnesium 1.7 mg/dL (1.9-2.7) L 04/30/18 05:30 Total Bilirubin 0.4 mg/dL (0.3-1.0) 04/30/18 05:30 AST 55 U/L (13-39) H 04/30/18 05:30 ALT 73 U/L (7-52) H 04/30/18 05:30 Alkaline Phosphatase 50 U/L (34-104) 04/30/18 05:30 Creatine Kinase 793 U/L (30-223) H 04/29/18 09:09 CK-MB (CK-2) 5.8 ng/mL (0.6-6.3) 04/29/18 09:09 Troponin I 0.01 ng/mL (0.01-0.05) 04/26/18 15:30 B-Natriuretic Peptide 230.0 pg/mL (5.0-100.0) H 04/30/18 05:30 Total Protein 6.7 gm/dL (6.0-8.3) 04/30/18 05:30 Albumin 3.7 gm/dL (4.2-5.5) L 04/30/18 05:30 Globulin 3.0 gm/dL 04/30/18 05:30 Albumin/Globulin Ratio 1.2 (1.0-1.8) 04/30/18 05:30 Triglycerides 122 mg/dL (<150) 04/26/18 15:30 Cholesterol 91 mg/dL (<200) 04/26/18 15:30 LDL Cholesterol Direct 46 mg/dL (75-193) L 04/26/18 15:30 HDL Cholesterol 27 mg/dL (23-92) 04/26/18 15:30 Amylase 18 U/L (29-103) L 04/26/18 15:30 Lipase 14 U/L (11-82) 04/26/18 15:30 Urine Source MIDSTREAM 04/26/18 16:46 Urine Color YELLOW 04/26/18 16:46 Urine Clarity CLEAR (CLEAR) 04/26/18 16:46 Urine pH 6.5 (4.6 - 8.0) 04/26/18 16:46 Ur Specific [place] 1.020 (1.005-1.030) 04/26/18 16:46 Urine Protein 30 mg/dL (NEGATIVE) H 04/26/18 16:46 Urine Glucose (UA) NEGATIVE mg/dL (NEGATIVE) 04/26/18 16:46 Urine Ketones NEGATIVE mg/dL (NEGATIVE) 04/26/18 16:46 Urine Blood LARGE (NEGATIVE) H 04/26/18 16:46 Urine Nitrate NEGATIVE (NEGATIVE) 04/26/18 16:46 Urine Bilirubin NEGATIVE (NEGATIVE) 04/26/18 16:46 Urine Urobilinogen 0.2 E.U./dL (0.2 - 1.0) 04/26/18 16:46 Ur Leukocyte Esterase NEGATIVE (NEGATIVE) 04/26/18 16:46 Urine RBC 5-10 /hpf (0-5) H 04/26/18 16:46 Urine WBC 0-2 /hpf (0-5) 04/26/18 16:46 Ur Epithelial Cells FEW /lpf (FEW) 04/26/18 16:46 Urine Bacteria FEW /hpf (NONE SEEN) 04/26/18 16:46 Coarse Granular Casts 0-2 /lpf (NONE SEEN) H 04/26/18 16:46 Urine Opiates Screen POSITIVE (NEGATIVE) H 04/27/18 06:00 Urine Methadone Screen NEGATIVE (NEGATIVE) 04/27/18 06:00 Ur Barbiturates Screen NEGATIVE (NEGATIVE) 04/27/18 06:00 Ur Tricyclics Screen POSITIVE (NEGATIVE) H 04/27/18 06:00 Ur Phencyclidine Scrn NEGATIVE (NEGATIVE) 04/27/18 06:00 Amphetamines Screen NEGATIVE (NEGATIVE) 04/27/18 06:00 U Methamphetamines Scrn NEGATIVE (NEGATIVE) 04/27/18 06:00 U Benzodiazepines Scrn POSITIVE (NEGATIVE) H 04/27/18 06:00 U Cocaine Metab Screen NEGATIVE (NEGATIVE) 04/27/18 06:00 U Cannabinoids Screen NEGATIVE (NEGATIVE) 04/27/18 06:00 Absolute CD4 Count SEE REF. LAB REPORT 04/28/18 05:56 Influenza A (Rapid) POS FOR INF A H 04/27/18 13:07 Influenza B (Rapid) NEG FOR INF B 04/27/18 13:07 - Physical Exam Vitals and I&O: Vital Signs Temp 97.9 F 04/30/18 03:00 Pulse 75 04/30/18 07:10 Resp 20 04/30/18 07:10 BP 127/72 04/30/18 03:00 Pulse Ox 97 04/30/18 07:10 Intake & Output 04/29/18 04/30/18 04/30/18 18:59 06:59 18:59 Intake Total 2418.333 Balance 2418.333 Weight (lbs) 133.81 kg Intake: Intake, IV Amount 918.333 D5-0.45NS 1,000 ml @ 100 918.333 mls/hr IV .Q10H [facility] Rx#: [id number] Oral 1500 Other: # Voids 5 # Bowel Movements 1 Stool Characteristics Soft Soft Weight Source Bedscale Active Medications: Current Medications Acetaminophen (Tylenol) 650 mg PO Q6H PRN PRN Reason: Pain (Mild) Stop: 06/27/18 01:51 Last Admin: 04/30/18 01:28 Dose: 650 mg Acetaminophen/Hydrocodone Bitart ([place] 5mg/325mg) 1 tab PO BID PRN PRN Reason: Pain (Moderate) Stop: 06/25/18 22:08 Last Admin: 04/30/18 05:27 Dose: 1 tab Albuterol/Ipratropium (Duoneb Neb) 3 ml HHN Q6HRT [facility] Stop: 06/26/18 12:59 Last Admin: 04/30/18 06:51 Dose: 3 ml Aspirin (Ecotrin) 81 mg PO DAILY [facility] Stop: 06/26/18 08:59 Last Admin: 04/29/18 08:41 Dose: 81 mg Budesonide (Pulmicort) 0.5 mg HHN BIDRT [facility] Stop: 06/28/18 18:59 Last Admin: 04/30/18 06:51 Dose: 0.5 mg Dextrose (D50w) 50 ml IVP PRN PRN PRN Reason: Blood Glucose less than 70 Stop: 06/25/18 22:40 Dextrose (Glutose 40%) 18.75 gm PO PRN PRN PRN Reason: Blood Glucose less than 70 Stop: 06/25/18 22:40 Ergocalciferol (Vitamin D2) 50,000 iu PO QMON [facility] Stop: 06/25/18 22:14 Last Admin: 04/27/18 16:57 Dose: Not Given Furosemide (Lasix) 20 mg PO DAILY [facility] Stop: 06/26/18 08:59 Last Admin: 04/29/18 08:41 Dose: 20 mg Gabapentin (Neurontin) 600 mg PO TID [facility] Stop: 06/26/18 08:59 Last Admin: 04/29/18 21:36 Dose: 600 mg Glucagon (Glucagen) 1 mg IM PRN PRN PRN Reason: Blood Glucose less than 70 Stop: 06/25/18 22:40 Guaifenesin/Dextromethorphan (Robitussin Dm) 10 ml PO Q6HR PRN PRN Reason: Cough Stop: 06/26/18 01:04 Last Admin: 04/30/18 01:28 Dose: 10 ml Dextrose/Sodium Chloride (D5-0.45ns) 1,000 mls @ 100 mls/hr IV .Q10H [facility] Stop: 06/28/18 11:59 Last Admin: 04/29/18 21:43 Dose: 100 mls/hr Insulin Human Lispro (Humalog Insulin Sliding Scale) 0 units SUBQ Q6HR [facility]; Protocol Stop: 06/26/18 00:00 Last Admin: 04/30/18 06:06 Dose: Not Given Levofloxacin (Levaquin) 500 mg PO DAILY [facility] Stop: 06/27/18 08:59 Last Admin: 04/29/18 08:41 Dose: 500 mg Loperamide HCl (Imodium) 2 mg PO Q4H PRN PRN Reason: Diarrhea Stop: 06/25/18 22:08 Last Admin: 04/29/18 01:45 Dose: 2 mg Lorazepam (Ativan) 1 mg PO DAILY [facility]; Protocol Stop: 06/26/18 08:59 Last Admin: 04/29/18 08:40 Dose: 1 mg Methylprednisolone Sodium Succinate (Solu-Medrol) 60 mg IVP Q8HR [facility] Stop: 06/28/18 12:59 Last Admin: 04/30/18 05:27 Dose: 60 mg Oseltamivir Phosphate (Tamiflu) 75 mg PO BID [facility] Stop: 06/26/18 16:59 Last Admin: 04/29/18 16:26 Dose: 75 mg Oxybutynin Chloride (Ditropan Xl) 10 mg PO DAILY [facility] Stop: 06/26/18 08:59 Last Admin: 04/29/18 08:40 Dose: 10 mg Potassium Chloride (Klor-Con) 20 meq PO DAILY [facility] Stop: 06/29/18 08:59 Zolpidem Tartrate (Ambien) 5 mg PO HS PRN PRN Reason: Insomnia Stop: 06/26/18 22:07 Last Admin: 04/29/18 21:36 Dose: 5 mg General: Alert, Oriented x3 HEENT: PERRLA Neck: Supple Cardiovascular: Regular rate Lungs: Clear to auscultation Abdomen: Bowel sounds, Soft Extremities: Other (No edema) Neurological: Normal gait Skin: Other (Warm and dry) Psych/Mental Status: Mental status NL Assessment/Plan - Problem List Patient Problems: All Active Problems COUGH WITH PURULENT SPUTUM (Acute) - Assessment Assessment: Current Active Problems Problem Status Onset COUGH WITH PURULENT SPUTUM Acute Patient is awake, alert, calm in no acute distress. CK improving, less cough. Dx : PNA, Rhabdomyolisis, Elevated D-dimers, Dehydration, HTN, DM, HIV. - Plan Plan: Patient is in IV NS, IV AB, Breathing treatment, Pain control, Insulin sliding scale, Diabetic diet, patient follow by ID. Awaiting ID clear patient to be DC. Will continue to monitor. Nutritional Asmnt/Malnutr-PDOC - Dietary Evaluation Malnutrition Findings (Please click <Entered> for more info): Nutritional Asmnt/Malnutrition Start: 04/27/18 12: 29 Text: Status: Complete Freq: Protocol: Document 04/27/18 12:29 CONOR (Rec: 04/27/18 12:45 [email or web address]- [email or web address]) Nutritional Asmnt/Malnutrition Patient General Information Nutritional Screening High Risk Consult Diagnosis Possible PE Pertinent Medical Hx/Surgical Hx HTN, asthma, anxiety, depression, HIV, diabetes Subjective Information Patient not in bed at time of visit. Current Diet Order/ Nutrition Support 60 gm CCHO Patient / S.O Not Indicated Pertinent Medications D50W, Vitamin D2, lasix, glucoagon, HUmalog, imodium Pertinent Labs (04/27) AST 181, ALT 79 ( decreasing), CK 6408 ( decreasing), ALbumin 3.4 ( decreasing) Nutritional Hx/Data Height 1.73 m Height (Calculated Centimeters) 172.7 Current Weight (lbs) 133.81 kg Weight (Calculated Kilograms) 133.8 Weight (Calculated Grams) 652771.7 [place] Body Weight 154 % [place] Body Weight 191 Body Mass Index (BMI) 44.8 Weight Status Morbidly Obese GI Symptoms GI Symptoms None Last BM none noted in EMR Difficult in: None Food Allergies No Cultural/Ethnic/Buddhism Belief none indicated Usual diet at home unknown Skin Integrity/Comment: carrie Tinajero Estimated Nutritional Goals BEE in Kcals: Adj wt of IBW Calories/Kcals/Kg Adj wt 86kg 25-30 kcal/kg Kcals Calculated ~5091-6489 kcal/day Protein: Adj wt of IBW Protein g/k-1.2 gm/kg using Adj wt Protein Calculated 85-105 gm/day Fluid: ml ~0755-1058 ml/day Nutritional Problem 1. Problem Problem Malnutrition related to Etiology morbid obesity aeb Signs/Symptoms: BMI 44.9 Malnutrition Related to Morbid Obesity Malnutrition related to morbid obesity BMI> or equal to 40 Query Text:(Any 1 Criteria met) Malnutrition related to morbid obesity Yes Intervention/Recommendation Comments 1. Continue 60 gm CCHO diet as tolerated by patient to continue glycemic control. 2. Continue to monitor PO intake; if inadequate, can add supplementation. Expected Outcomes/Goals Expected Outcomes/Goals ORal intake >75% of meals, weight stable or decraese toward IBW, nutrition related labs WNL F/U MR
[2018-04-30] MEDS ORDERED: Potassium Chloride 20 mEq ER Tab PO SCH (09:00)
[2018-04-30] MEDS: Oxybutynin Chloride 5 mg ER Tab PO SCH (09:24)
--- NOTE | 2018-04-30 10:57 | Internal Medicine Prog Note ---
Internal Medicine Subjective - Subjective Service Date: 04/30/18 (comfortable, no acute events.) Patient is:: awake Patient Complaints of:: congestion, cough Per staff patient has:: no adverse event Internal Medicine Objective - Results Result Diagrams: 04/30/18 05:30 04/30/18 05:30 Recent Labs: Laboratory Last Values WBC 6.2 Th/cmm (4.8-10.8) 04/30/18 05:30 RBC 4.84 Mil/cmm (4.30-5.70) 04/30/18 05:30 Hgb 13.5 gm/dL (12-16) 04/30/18 05:30 Hct 41.7 % (41.0-60) 04/30/18 05:30 MCV 86.2 fl (80-99) 04/30/18 05:30 MCH 27.9 pg (26.0-30.0) 04/30/18 05:30 MCHC Differential 32.4 pg (28.0-36.0) 04/30/18 05:30 RDW 12.8 % (11.5-20.0) 04/30/18 05:30 Plt Count 184 Th/cmm (150-400) 04/30/18 05:30 MPV 8.7 fl 04/30/18 05:30 Add Manual Diff YES 04/29/18 04:40 Neutrophils % 71.7 % (40.0-80.0) 04/30/18 05:30 Band Neutrophils % 5 % (0-10) 04/29/18 04:40 Lymphocytes % 23.6 % (20.0-50.0) 04/30/18 05:30 Monocytes % 3.8 % (2.0-10.0) 04/30/18 05:30 Eosinophils % 0.2 % (0.0-5.0) 04/30/18 05:30 Basophils % 0.7 % (0.0-2.0) 04/30/18 05:30 Neutrophils (Manual) 30 % (40-80) L 04/29/18 04:40 Lymphocytes 55 % (20-50) H 04/29/18 04:40 Monocytes 8 % (2-10) 04/29/18 04:40 Eosinophils 2 % (0-5) 04/29/18 04:40 Basophils 0 % (0-3) 04/28/18 05:56 Platelet Estimate ADEQUATE (NORMAL) 04/29/18 04:40 PT 10.7 SECONDS (9.5-11.5) 04/26/18 15:30 INR 1.03 (0.5-1.4) 04/26/18 15:30 PTT (Actin FS) 34.6 SECONDS (26.0-38.0) 04/26/18 15:30 D-Dimer 825 ng/mL (100-400) H 04/26/18 15:30 Sodium 144 mEq/L (136-145) 04/30/18 05:30 Potassium 3.2 mEq/L (3.5-5.1) L 04/30/18 05:30 Chloride 106 mEq/L (98-107) 04/30/18 05:30 Carbon Dioxide 28.1 mEq/L (21.0-31.0) 04/30/18 05:30 Anion Gap 13.1 (7.0-16.0) 04/30/18 05:30 BUN 11 mg/dL (7-25) 04/30/18 05:30 Creatinine 0.7 mg/dL (0.7-1.3) 04/30/18 05:30 Est GFR ( Amer) > 60.0 ml/min (>90) 04/30/18 05:30 Est GFR (Non-Af Amer) > 60.0 ml/min 04/30/18 05:30 BUN/Creatinine Ratio 15.7 04/30/18 05:30 Glucose 128 mg/dL (70-105) H 04/30/18 05:30 POC Glucose 118 MG/DL (70 - 105) H 04/30/18 05:35 Whole Bld Lactic Acid 1.17 mmol/L (0.60-1.99) 04/26/18 15:30 Calcium 9.6 mg/dL (8.6-10.3) 04/30/18 05:30 Magnesium 1.7 mg/dL (1.9-2.7) L 04/30/18 05:30 Total Bilirubin 0.4 mg/dL (0.3-1.0) 04/30/18 05:30 AST 55 U/L (13-39) H 04/30/18 05:30 ALT 73 U/L (7-52) H 04/30/18 05:30 Alkaline Phosphatase 50 U/L (34-104) 04/30/18 05:30 Creatine Kinase 793 U/L (30-223) H 04/29/18 09:09 CK-MB (CK-2) 5.8 ng/mL (0.6-6.3) 04/29/18 09:09 Troponin I 0.01 ng/mL (0.01-0.05) 04/26/18 15:30 B-Natriuretic Peptide 230.0 pg/mL (5.0-100.0) H 04/30/18 05:30 Total Protein 6.7 gm/dL (6.0-8.3) 04/30/18 05:30 Albumin 3.7 gm/dL (4.2-5.5) L 04/30/18 05:30 Globulin 3.0 gm/dL 04/30/18 05:30 Albumin/Globulin Ratio 1.2 (1.0-1.8) 04/30/18 05:30 Triglycerides 122 mg/dL (<150) 04/26/18 15:30 Cholesterol 91 mg/dL (<200) 04/26/18 15:30 LDL Cholesterol Direct 46 mg/dL (75-193) L 04/26/18 15:30 HDL Cholesterol 27 mg/dL (23-92) 04/26/18 15:30 Amylase 18 U/L (29-103) L 04/26/18 15:30 Lipase 14 U/L (11-82) 04/26/18 15:30 Urine Source MIDSTREAM 04/26/18 16:46 Urine Color YELLOW 04/26/18 16:46 Urine Clarity CLEAR (CLEAR) 04/26/18 16:46 Urine pH 6.5 (4.6 - 8.0) 04/26/18 16:46 Ur Specific [place] 1.020 (1.005-1.030) 04/26/18 16:46 Urine Protein 30 mg/dL (NEGATIVE) H 04/26/18 16:46 Urine Glucose (UA) NEGATIVE mg/dL (NEGATIVE) 04/26/18 16:46 Urine Ketones NEGATIVE mg/dL (NEGATIVE) 04/26/18 16:46 Urine Blood LARGE (NEGATIVE) H 04/26/18 16:46 Urine Nitrate NEGATIVE (NEGATIVE) 04/26/18 16:46 Urine Bilirubin NEGATIVE (NEGATIVE) 04/26/18 16:46 Urine Urobilinogen 0.2 E.U./dL (0.2 - 1.0) 04/26/18 16:46 Ur Leukocyte Esterase NEGATIVE (NEGATIVE) 04/26/18 16:46 Urine RBC 5-10 /hpf (0-5) H 04/26/18 16:46 Urine WBC 0-2 /hpf (0-5) 04/26/18 16:46 Ur Epithelial Cells FEW /lpf (FEW) 04/26/18 16:46 Urine Bacteria FEW /hpf (NONE SEEN) 04/26/18 16:46 Coarse Granular Casts 0-2 /lpf (NONE SEEN) H 04/26/18 16:46 Urine Opiates Screen POSITIVE (NEGATIVE) H 04/27/18 06:00 Urine Methadone Screen NEGATIVE (NEGATIVE) 04/27/18 06:00 Ur Barbiturates Screen NEGATIVE (NEGATIVE) 04/27/18 06:00 Ur Tricyclics Screen POSITIVE (NEGATIVE) H 04/27/18 06:00 Ur Phencyclidine Scrn NEGATIVE (NEGATIVE) 04/27/18 06:00 Amphetamines Screen NEGATIVE (NEGATIVE) 04/27/18 06:00 U Methamphetamines Scrn NEGATIVE (NEGATIVE) 04/27/18 06:00 U Benzodiazepines Scrn POSITIVE (NEGATIVE) H 04/27/18 06:00 U Cocaine Metab Screen NEGATIVE (NEGATIVE) 04/27/18 06:00 U Cannabinoids Screen NEGATIVE (NEGATIVE) 04/27/18 06:00 Absolute CD4 Count SEE REF. LAB REPORT 04/28/18 05:56 Influenza A (Rapid) POS FOR INF A H 04/27/18 13:07 Influenza B (Rapid) NEG FOR INF B 04/27/18 13:07 - Physical Exam Vitals and I&O: Vital Signs Temp 97.2 F 04/30/18 08:00 Pulse 85 04/30/18 08:00 Resp 18 04/30/18 08:00 BP 128/75 04/30/18 09:25 Pulse Ox 97 04/30/18 08:00 Intake & Output 04/29/18 04/30/18 04/30/18 18:59 06:59 18:59 Intake Total 2418.333 Balance 2418.333 Weight (lbs) 133.81 kg Intake: Intake, IV Amount 918.333 D5-0.45NS 1,000 ml @ 100 918.333 mls/hr IV .Q10H [facility] Rx#: [id number] Oral 1500 Other: # Voids 5 # Bowel Movements 1 Stool Characteristics Soft Soft Weight Source Bedscale Active Medications: Current Medications Acetaminophen (Tylenol) 650 mg PO Q6H PRN PRN Reason: Pain (Mild) Stop: 06/27/18 01:51 Last Admin: 04/30/18 01:28 Dose: 650 mg Acetaminophen/Hydrocodone Bitart ([place] 5mg/325mg) 1 tab PO BID PRN PRN Reason: Pain (Moderate) Stop: 06/25/18 22:08 Last Admin: 04/30/18 05:27 Dose: 1 tab Albuterol/Ipratropium (Duoneb Neb) 3 ml HHN Q6HRT [facility] Stop: 06/26/18 12:59 Last Admin: 04/30/18 06:51 Dose: 3 ml Aspirin (Ecotrin) 81 mg PO DAILY [facility] Stop: 06/26/18 08:59 Last Admin: 04/30/18 09:26 Dose: 81 mg Budesonide (Pulmicort) 0.5 mg HHN BIDRT [facility] Stop: 06/28/18 18:59 Last Admin: 04/30/18 06:51 Dose: 0.5 mg Dextrose (D50w) 50 ml IVP PRN PRN PRN Reason: Blood Glucose less than 70 Stop: 06/25/18 22:40 Dextrose (Glutose 40%) 18.75 gm PO PRN PRN PRN Reason: Blood Glucose less than 70 Stop: 06/25/18 22:40 Ergocalciferol (Vitamin D2) 50,000 iu PO QMON [facility] Stop: 06/25/18 22:14 Last Admin: 04/27/18 16:57 Dose: Not Given Furosemide (Lasix) 20 mg PO DAILY [facility] Stop: 06/26/18 08:59 Last Admin: 04/30/18 09:25 Dose: 20 mg Gabapentin (Neurontin) 600 mg PO TID [facility] Stop: 06/26/18 08:59 Last Admin: 04/30/18 09:24 Dose: 600 mg Glucagon (Glucagen) 1 mg IM PRN PRN PRN Reason: Blood Glucose less than 70 Stop: 06/25/18 22:40 Guaifenesin/Dextromethorphan (Robitussin Dm) 10 ml PO Q6HR PRN PRN Reason: Cough Stop: 06/26/18 01:04 Last Admin: 04/30/18 01:28 Dose: 10 ml Dextrose/Sodium Chloride (D5-0.45ns) 1,000 mls @ 100 mls/hr IV .Q10H [facility] Stop: 06/28/18 11:59 Last Admin: 04/29/18 21:43 Dose: 100 mls/hr Insulin Human Lispro (Humalog Insulin Sliding Scale) 0 units SUBQ Q6HR [facility]; Protocol Stop: 06/26/18 00:00 Last Admin: 04/30/18 06:06 Dose: Not Given Levofloxacin (Levaquin) 500 mg PO DAILY [facility] Stop: 06/27/18 08:59 Last Admin: 04/30/18 09:24 Dose: 500 mg Loperamide HCl (Imodium) 2 mg PO Q4H PRN PRN Reason: Diarrhea Stop: 06/25/18 22:08 Last Admin: 04/29/18 01:45 Dose: 2 mg Lorazepam (Ativan) 1 mg PO DAILY [facility]; Protocol Stop: 06/26/18 08:59 Last Admin: 04/30/18 09:26 Dose: 1 mg Lorazepam (Ativan) 1 mg PO HS PRN; Protocol PRN Reason: Insomnia Stop: 06/29/18 08:51 Methylprednisolone Sodium Succinate (Solu-Medrol) 60 mg IVP Q8HR [facility] Stop: 06/28/18 12:59 Last Admin: 04/30/18 05:27 Dose: 60 mg Oseltamivir Phosphate (Tamiflu) 75 mg PO BID [facility] Stop: 06/26/18 16:59 Last Admin: 04/30/18 09:24 Dose: 75 mg Oxybutynin Chloride (Ditropan Xl) 10 mg PO DAILY [facility] Stop: 06/26/18 08:59 Last Admin: 04/30/18 09:24 Dose: 10 mg Potassium Chloride (Klor-Con) 20 meq PO DAILY [facility] Stop: 06/29/18 08:59 Last Admin: 04/30/18 09:26 Dose: 20 meq HEENT: NC/AT, PERRLA, EOMI Neck: No JVD, No LAD Lungs: congested, wheezing, ronchi Cardiovascular: RRR, Normal S1, Normal S2, without murmur Abdomen: soft, non-tender, non-distended, positive bowel sound Internal Medicine Assmt/Plan - Assessment Assessment: RESPIRATORY INSUFFICIENCY-improving. INFLUENZA A POSITIVE EARLY PNA VS TRACHEOBRONCHITIS-clinically improving. HX OF BRONCHIAL ASTHMA RHABDOMYOLISIS ELEVATED LIVER ENZYMES-improving. ELEVETED D-DIMER HISTORY OF HIV HISTORY OF DM-2 ESSENTIAL HYPERTENSION - Plan Plan: CONT WITH CURRENT SUPPORTIVE CARE AND MGT CONT WITH TAMIFLU, LEVAQUIN CONT WITH PULMONARY TOILET, O2 NEEDED CONT WITH IV/INHALED STEROIDS FOLLOW CXR, C/S CONT WITH OTHER MEDS SCHEDULED Nutritional Asmnt/Malnutr-PDOC - Dietary Evaluation Malnutrition Findings (Please click <Entered> for more info): Nutritional Asmnt/Malnutrition Start: 04/27/18 12: 29 Text: Status: Complete Freq: Protocol: Document 04/27/18 12:29 MMULHERN (Rec: 04/27/18 12:45 [id number]) Nutritional Asmnt/Malnutrition Patient General Information Nutritional Screening High Risk Consult Diagnosis Possible PE Pertinent Medical Hx/Surgical Hx HTN, asthma, anxiety, depression, HIV, diabetes Subjective Information Patient not in bed at time of visit. Current Diet Order/ Nutrition Support 60 gm CCHO Patient / S.O Not Indicated Pertinent Medications D50W, Vitamin D2, lasix, glucoagon, HUmalog, imodium Pertinent Labs (04/27) AST 181, ALT 79 ( decreasing), CK 6408 ( decreasing), ALbumin 3.4 ( decreasing) Nutritional Hx/Data Height 1.73 m Height (Calculated Centimeters) 172.7 Current Weight (lbs) 133.81 kg Weight (Calculated Kilograms) 133.8 Weight (Calculated Grams) 271030.7 [place] Body Weight 154 % [place] Body Weight 191 Body Mass Index (BMI) 44.8 Weight Status Morbidly Obese GI Symptoms GI Symptoms None Last BM none noted in EMR Difficult in: None Food Allergies No Cultural/Ethnic/Confucianist Belief none indicated Usual diet at home unknown Skin Integrity/Comment: carrie Tinajero Estimated Nutritional Goals BEE in Kcals: Adj wt of IBW Calories/Kcals/Kg Adj wt 86kg 25-30 kcal/kg Kcals Calculated ~1187-5355 kcal/day Protein: Adj wt of IBW Protein g/k-1.2 gm/kg using Adj wt Protein Calculated 85-105 gm/day Fluid: ml ~9891-9832 ml/day Nutritional Problem 1. Problem Problem Malnutrition related to Etiology morbid obesity aeb Signs/Symptoms: BMI 44.9 Malnutrition Related to Morbid Obesity Malnutrition related to morbid obesity BMI> or equal to 40 Query Text:(Any 1 Criteria met) Malnutrition related to morbid obesity Yes Intervention/Recommendation Comments 1. Continue 60 gm CCHO diet as tolerated by patient to continue glycemic control. 2. Continue to monitor PO intake; if inadequate, can add supplementation. Expected Outcomes/Goals Expected Outcomes/Goals ORal intake >75% of meals, weight stable or decraese toward IBW, nutrition related labs WNL F/U MR
[2018-04-30] MEDS: D5-0.45NS 1,000 ML IV SCH (11:15)
--- NOTE | 2018-05-01 18:24 | Discharge Summary ---
General Discharge Summary - Discharge Summary Date of Admission: 04/26/18 Admitting Diagnosis: PNA, Rhabdomyolisis, Elevated D Dimmers, Dehydration, HTN, DM, HIV Discharge Date: 04/30/18 Laboratory Findings: Laboratory Results - last 24 hr 04/30/18 18:16 POC Glucose 149 H Hospital Course: Patient respond to treatment, CK improved, D Dimmers improved, CT showed no PE, PNA resolved, HIV stable. Treatment: Patient started in IV NS, IV AB, Breathing treatment, pain control, some home meds hold due to Rhabdomyolisis. Patient was follow by ID. Patient left AMA. Condition at Discharge: Stable (PCP) Disposition: AGAINST MEDICAL ADVICE Home Medications: Home Medication Medication Instructions Recorded Type Albuterol Sulfate [Proair 90 mcg IH Q4H PRN 04/26/18 History Respiclick] Amitriptyline HCl 75 mg PO HS 04/26/18 History Aripiprazole [Abilify] 5 mg PO DAILY 04/26/18 History Aspirin EC [Ecotrin] 81 mg PO DAILY 04/26/18 History Atorvastatin Calcium [Lipitor] 10 mg PO DAILY 04/26/18 History Bictegrav/Emtricit/Tenofov Ala 1 each PO DAILY 04/26/18 History [Biktarvy 50-200-25 mg Tablet] Crofelemer [Fulyzaq] 125 mg PO BID 04/26/18 History Diclofenac Sodium [Voltaren] 1 % TP QID 04/26/18 History Duloxetine HCl [Cymbalta] 20 mg PO BID 04/26/18 History Ergocalciferol [Vitamin D2] 50,000 iu PO QWEEK 04/26/18 History Fluticasone/Vilanterol [Breo 1 each IH DAILY 04/26/18 History Ellipta 200-25 Mcg INH] Furosemide 20 mg PO DAILY 04/26/18 History Gabapentin 600 mg PO TID 04/26/18 History Hydrocodone/Acetaminophen 1 each PO BID PRN 04/26/18 History [Hydrocodone-Acetamin 5-325 mg] Lamotrigine [Lamictal] 250 mg PO HS 04/26/18 History Lidocaine 2 gm TP BID PRN 04/26/18 History Loperamide [Imodium] 2 mg PO Q4H PRN 04/26/18 History Loratadine 10 mg PO DAILY 04/26/18 History Lorazepam 1 mg PO DAILY 04/26/18 History Losartan Potassium 50 mg PO DAILY 04/26/18 History Nystatin 1 each MC BID 04/26/18 History Oxybutynin Chloride [Ditropan Xl] 10 mg PO DAILY 04/26/18 History Topiramate 25 mg PO BID 04/26/18 History metFORMIN [Glucophage] 500 mg PO BID 04/26/18 History Inpatient Medications: Current Medications Aspirin (Ecotrin) 81 mg PO DAILY VINICIO Stop: 06/26/18 08:59 Last Admin: 04/30/18 09:26 Dose: 81 mg Activity: As Tolerated Discharge Diet: Regular Consults and Follow-Up: NO,PCP PER PATIENT [Other] not on staff,PCP is [Primary Care Provider] - Consulting Speciality: Infectious Disease, Other
== END 2018-04-30 19:30 | disposition left against medical advice (07) | DRG 871 ==
LOC: ER 14:38 → MSI 20:26 → TELE 21:26 → MSI 04-29 09:15
PROVIDERS: ADMIT General Practice; ATTEND General Practice
DX: A41.9 Sepsis, unspecified organism (principal); J10.00 Influenza due to other identified influenza virus with unspecified type of pneumonia; J18.1 Lobar pneumonia, unspecified organism; M62.82 Rhabdomyolysis; E87.1 Hypo-osmolality and hyponatremia; E86.0 Dehydration; I10 Essential (primary) hypertension; E11.9 Type 2 diabetes mellitus without complications; E78.5 Hyperlipidemia, unspecified; F32.9 Major depressive disorder, single episode, unspecified; F17.210 Nicotine dependence, cigarettes, uncomplicated; E87.6 Hypokalemia; Z21 Asymptomatic human immunodeficiency virus [HIV] infection status; Z53.21 Procedure and treatment not carried out due to patient leaving prior to being seen by health care provider; Z88.2 Allergy status to sulfonamides; Z83.3 Family history of diabetes mellitus; Z82.49 Family history of ischemic heart disease and other diseases of the circulatory system
CPT/HCPCS: 36415-UA; 71045-TC; 71275-TC; 80053-TC; 80061-TC; 80307; 81001-TC; 82150-TC; 82550-TC; 82553; 82948-90; 83605; 83690-TC; 83735-TC; 83880-TC; 84484-TC; 85007-TC; 85025-TC; 85379-TC; 85610-TC; 85730-TC; 86361-90; 86592-TC; 87070; 87536-90; 87804-TC; 93005; 93970-TC-50; 94640; 94760; J0456; J0696; J1956; J2920; J2930; J3480; J7030; Q9967; Z7610